=== PATIENT | male | born 1950 | race Caucasian/White ===

== ENCOUNTER 2017-01-27 18:54 | Emergency (ER) | payer OTHER ==
--- NOTE | ~2017-01-27 | CT2 ---
[facility] A Service of [facility] & [facility] RADIOLOGY TEXT RESULTS PATIENT: ABDI JOHNSON LOCATION: [facility] : [birth year] UNIT #: [id number] AGE: [address]: Aman Pryor MD SEX: M ORDER DR: [id number] [facility] [address] [place], [place] [address] [id number] E MR#: [id number] #: [id number] NAME: ABDI JOHNSON : 1950 SEX: M STUDY DATE/TIME: 01/27/2017 19:58 UNIT: [facility] ROOM: STUDY DESCRIPTION: CT Abd and Pelv W Cont Attending Physician: Aman Pryor M.D. Ordering Physician: Aman Pryor M.D. Primary Care Physician: Xenia Beck M.D. MEDICAL IMAGING REPORT This report is preliminary unless electronic signature is present EXAM CT abdomen and pelvis with IV contrast HISTORY Right groin pain today. FINDINGS CT abdomen and pelvis was performed with IV contrast. This CT exam was performed with one or more of the following radiation dose reduction techniques: Automatic exposure control, adjustment of mA and/or kV according to patient size, and iterative reconstruction. CT ABDOMEN: The lung bases are clear. Multiple bilateral renal cysts, predominantly simple cysts, with probable additional hemorrhagic or proteinaceous cysts, very similar to CT 02/26/2014. 1.8 cm hyperenhancing lesion in the posterior right hepatic lobe in segments , stable compared to CT 10/09/2009, indicating a hemangioma. The spleen, pancreas, and adrenal glands are normal. Gallbladder is normal. No bowel dilatation. No ascites. Aortobiiliac stent graft. CT PELVIS: Segmental wall thickening of the distal descending colon extending to the proximal sigmoid colon in the left pelvis over a length of close to 15 cm, with mild adjacent pericolonic stranding, suggesting segmental infectious or inflammatory colitis. No free fluid in the pelvis. No adenopathy. Urinary bladder is normal. IMPRESSION 1. Moderate circumferential wall thickening of the distal descending colon extending to the proximal sigmoid colon in the left pelvis over a length of close to 15 cm, with adjacent pericolonic stranding suggesting segmental infectious or inflammatory colitis. No adjacent fluid collection or abscess. No bowel obstruction. 2. No free fluid in the abdomen or pelvis. [facility]. [facility] A Service of [facility] & [facility] RADIOLOGY TEXT RESULTS PATIENT: ABDI JOHNSON LOCATION: [facility] : 50 UNIT #: [id number] AGE: [address]: Aman Pryor MD SEX: M ORDER DR: 3. Incidental hemangioma in the posterior right hepatic lobe measures 1.8 cm. Dictated by... Sonu Kumar M.D. THIS IS AN ELECTRONICALLY VERIFIED REPORT Sonu Kumar M.D. at 01/28/2017 12:05 AM DFL/pamela TD: 01/27/2017 23:21 JOB #: [id number] MEDICAL IMAGING REPORT Page 1 of 1 COPY
[~2017-01-27 18:54] MED LIST: ACETAMINOPHEN PR; ALBUTEROL17 GM INH; ALDACTONE25 MG PO; AMIODARONE HCL100 MG PO; ASPIRIN EC81 M1 PO; ASPIRIN PO; ASPIRIN81 M2 PO; ASPIRIN81 MG PO; CALCIUM CITRATE1 T15 PO; CLOPIDOGREL75 MG PO; COREG PO; COREG6.25 MG PO; DELTASONE20 MG PO; DITROPAN5 MG PO; FLOMAX0.4 MG PO; IBUPROFEN PO; IBUPROFEN800 MG PO; KEPPRA1000 MG PO; KETOPROFEN PO; LANOXIN125 MCG PO; LASIX20 MG PO; LEVAQUIN750 M1 PO; LIPITOR PO; LIPITOR40 MG PO; LISINOPRIL PO; LOPRESSOR PO; METOPROLOL TAR25 MG PO; NEURONTIN PO; NEURONTIN300 MG PO; PRADAXA150 MG PO; PREDNISONE PO; PRINIVIL5 MG; PRINIVIL5 MG PO; PROAIR HFA8.5 GM IH; RISPERIDONE0.5 MG PO; SYMBICORT INH; TYLOX 5/500 CAP1 CAP PO; VICODIN 5/1 TAB 5/50 PO; VICODIN 5/500 T1 TAB PO; ZITHROMAX PO; ZOCOR20 MG PO; ZOFRAN PO; ZONEGRAN100 M1 PO
[2017-01-27 19:21] LABS: URINE SOURCE CLEAN CATCH
[2017-01-27 19:27] LABS: BASOPHIL# 0.1 X10e3 (0-0.3); BASOPHIL% 1.1 % (0-2.5); EOSINOPHIL# 0.7 X10e3 (0-0.7); EOSINOPHIL% 7.7 % (0.0-7.0); HEMATOCRIT 43.4 % (38.0-50.0); HEMOGLOBIN 14.5 gm/dL (13.0-16.0); LYMPHOCYTE# 2.6 X10e3 (1.0-3.5); LYMPHOCYTE% 29.4 % (17.0-45.0); MEAN CELL VOLUME 92.2 FL (83-96); MEAN CORPUSCULAR HEMOGLOBIN 30.7 PG (28-34); MEAN CORPUSCULAR HGB CONC 33.3 g/dL (30-36); MEAN PLATELET VOLUME 8.4 FL (6.5-11.5); MONOCYTE# 0.6 X10e3 (0-1.0); MONOCYTE% 6.5 % (3.0-12.0); NEUTROPHIL# 4.8 X10e3 (1.5-7.1); NEUTROPHIL% 55.3 % (40-75); PLATELET COUNT 229 X10e3 (140-420); RED BLOOD COUNT 4.71 X10e (3.90-5.60); RED CELL DISTRIBUTION WIDTH 12.9 % (11.0-15.5); WHITE BLOOD COUNT 8.7 X10e3 (4.0-10.5)
[2017-01-27 19:28] LABS: DIFF IND NO
[2017-01-27 19:29] LABS: URINE APPEARANCE CLEAR; URINE BILIRUBIN NEG (NEG); URINE BLOOD NEG (NEG); URINE COLOR YELLOW; URINE GLUCOSE NEG (NEG); URINE KETONE NEG (NEG); URINE LEUKOCYTE ESTERASE TRACE (NEG); URINE NITRATE NEG (NEG); URINE PROTEIN NEG (NEG); URINE SPECIFIC GRAVITY 1.008 (1.003-1.035); URINE UROBILINOGEN 0.2 MG/DL (NEG)
[2017-01-27 19:32] LABS: URBCS1 AUWI 0-2 /[HPF] (0-2); URINE BACTERIA AUWI NEG (NEGATIVE); URINE SQUAMOUS EPITHELIAL CELL NONE SEEN /[HPF]; UWBCS1 AUWI 0-2 (0-5)
[2017-01-27 19:36] LABS: CULTURE INDICATED? NO
[2017-01-27 19:50] LABS: ALBUMIN SERUM 4.2 g/dL (3.5-5.0); BILIRUBIN, DIRECT 0.1 mg/dL (0.0-0.2); BILIRUBIN,INDIRECT 0.7 mg/dL (0.0-0.9); BILIRUBIN,TOTAL 0.8 mg/dL (0.2-2.0); BUN/CREATININE RATIO 12.3; CREATININE SERUM 1.3 mg/dL (0.6-1.4); GLOM FILT RATE Estimated 56.9 mL/min (>60); PROTEIN TOTAL SERUM 7.3 g/dL (6.0-8.3)
== END 2017-01-27 21:15 | disposition home or self-care (01) ==
LOC: CED 18:54
PROVIDERS: Emergency Medicine
DX: S39.011A Strain of muscle, fascia and tendon of abdomen, initial encounter (principal); K52.9 Noninfective gastroenteritis and colitis, unspecified; X58.XXXA Exposure to other specified factors, initial encounter
CPT/HCPCS: 36415; 74177; 80048; 80076; 81003; 85025; 94640; 96372; 99284; J1885; Q9967

== ENCOUNTER 2017-03-22 14:43 | Inpatient (IN) | payer OTHER ==
--- NOTE | ~2017-03-22 | EKG ---
PATIENT: ABDI JOHNSON UNIT #: [id number] Ventricular Rate: 97 BPM Atrial Rate: 97 BPM P-R Interval: 160 ms QRS Duration: 76 ms Q-T Interval: 364 ms QTC Calculation(Bezet): 462 ms P Pomeroy: 77 degrees Calculated R Pomeroy: 104 degrees Calculated T Pomeroy: 74 degrees Diagnosis Line: Sinus rhythm with marked sinus arrhythmia Diagnosis Line: Biatrial enlargement Diagnosis Line: Rightward axis Diagnosis Line: Abnormal ECG Diagnosis Line: When compared with ECG of 26-AUG-2016 10:37, Diagnosis Line: No significant change was found Diagnosis Line: Confirmed by QASIM EUBANKS MD ([id number]) on Diagnosis Line: 03/24/2017 1:13:06 PM INTERPRETING MD: HO
--- NOTE | ~2017-03-22 | CO ---
Unit #: [id number] #: [id number] Patient: ABDI JOHNSON [id number] [address] [place], [place] [address] [id number] I MR#: [id number] NAME: ABDI JOHNSON ROOM: 313 Age: 66 Sex: M Admission Date: 03/22/2017 : 1950 Attending Physician: Francia Porter M.D. Primary Care Physician: Xenia Beck M.D. Consultation Date: 03/23/2017 CONSULTATION REPORT REASON FOR CONSULTATION COPD, possible respiratory failure. HISTORY OF PRESENT ILLNESS This 66-year-old gentleman who has a history of COPD, left ventricular dysfunction, was seen in the hospital in July 2016. He was scheduled for office follow up but missed that appointment as he was in the emergency room for a rash and never rescheduled. He was fairly well controlled on Symbicort but then two or three days ago, had increasing wheezing, shortness of breath, clear sputum production. Presented to the emergency room where he was admitted. Despite IV steroids, he still had significant wheezing. He denied any fever, chest pain, or hemoptysis. PAST MEDICAL HISTORY Remarkable for: 1. COPD. 2. Paroxysmal atrial fibrillation. 3. Hypertension. 4. Hyperlipidemia. 5. Left ventricular dysfunction with an EF of 45%. 6. Pulmonary hypertension. 7. Peripheral vascular disease, status post abdominal aortic aneurysm repair. HOME MEDICATIONS 1. Symbicort two puffs b.i.d. He states compliance. He has no rescue inhaler. 2. Amiodarone. 3. Metoprolol. 4. Lipitor. 5. Aspirin. 6. Pradaxa. ALLERGIES No known medical allergies. SOCIAL HISTORY Quit smoking as of July 2016. FAMILY HISTORY No definite familial lung disease. REVIEW OF SYSTEMS As above. No fever, chills, weight loss. No hemoptysis, chest pain, Unit #: [id number] #: [id number] Patient: ABDI JOHNSON palpitations, abdominal pain, melena, hematochezia, hematuria, dysuria, focal weakness, paresthesias. The rash that he had has resolved and apparently was related to changing detergents. He does complain of intermittent right lower quadrant abdominal discomfort. He has had hernia surgery in the remote past. No definite abdominal pain currently. He has no difficulty with his bowel movements. PHYSICAL EXAMINATION VITAL SIGNS: Afebrile. Pulse 77, respiratory rate 18, blood pressure 127/65. 5 feet 7 inches, 180 pounds. GENERAL: He is in n no acute distress. HEENT: Pupils are equal, round, and reactive to light. Sclerae anicteric. Head atraumatic. NECK: Supple. No supraclavicular or cervical adenopathy appreciated. Mallampati class IV oropharynx. He has natural teeth in moderate to poor dentition. LUNGS: Tight expiratory wheeze, both inspiratory and expiratory. No crackles or consolidation. HEART: Regular rate and rhythm. No pathologic murmur, rub or gallop. ABDOMEN: Soft and, for the most part, nontender. Near his inguinal area there is some mild tenderness to palpation but I do not see an obvious hernia. LOWER EXTREMITIES: No clubbing, cyanosis or edema. No calf tenderness. NEUROLOGIC: Grossly intact. No focal muscle or sensory deficits. SKIN: Warm and dry without rash or diaphoresis. DIAGNOSTIC STUDIES LABORATORY: BUN 20, creatinine 1.0. BNP 61. Cardiac enzymes negative. White blood cell count 11.4, hemoglobin 14.6, platelet count 240. Urinalysis glucosuria. Sputum in the past haemophilus influenzae, betalactamase positive. Urine culture pending. IMAGING: Chest x-ray COPD. CARDIOVASCULAR: Rhythm strips are sinus. EKG P. pulmonale. IMPRESSION 1. Acute exacerbation of chronic obstructive pulmonary disease. 2. Possible acute hypoxemic respiratory failure. I do not see any documented low saturations but he is on 2 liters and he was on 2 liters in the ER. No oxygen at home. 3. Bronchitis. 4. Left ventricular dysfunction. 5. Pulmonary hypertension with estimated RSVP about 47. 6. Paroxysmal atrial fibrillation. 7. Medical problems listed above. PLAN 1. Agree with admission to the hospital. 2. IV steroids, nebulized bronchodilators, oral antibiotics. 3. We will check oxygenation needs. 4. I have suggested office followup at discharge. 5. Prescription for rescue inhaler has been left on the chart. Thank you very much for allowing me to participate in the care of Mr. Johnson. Unit #: [id number] #: [id number] Patient: ABDI JOHNSON Dictated by... Lamont Emery/melody TD: 03/23/2017 15:46 JOB #: [id number] CONSULTATION REPORT Page 1 of 1 X Juan Jose Gerard MD CONSULTATION REPORT
--- NOTE | ~2017-03-22 | CR72 ---
[facility] A Service of [facility] RADIOLOGY TEXT RESULTS PATIENT: ABDI JOHNSON LOCATION: [facility] 313-01 : 50 UNIT #: [id number] AGE: [address]: Donna Andre MD SEX: M ORDER DR: [id number] [facility] [address] [place], [place] [address] [id number] I MR#: [id number] Acc #: [id number] NAME: ABDI JOHNSON : 1950 SEX: M STUDY DATE/TIME: 03/22/2017 14:57 UNIT: [address] ROOM: [facility] STUDY DESCRIPTION: CR Chest Single View Portable Attending Physician: Donna Andre M.D. Ordering Physician: Sukumar Mendieta M.D. Primary Care Physician: Xenia Beck M.D. MEDICAL IMAGING REPORT This report is preliminary unless electronic signature is present EXAM Portable chest x-ray, 03/22/2017 HISTORY Shortness of air. Previous smoker. Short of air, chest pain began today. FINDINGS AP radiograph of the chest is presented. Comparison 11/03/2016. Heart and mediastinum normal in size and contour. Lungs appear slightly hyperinflated as on prior study which may be a reflection of underlying COPD in this patient with prior history of smoking. There is no evidence of acute pulmonary disease, pleural effusion or pneumothorax. No suspicious nodule. The bony structures show no acute abnormality. Dictated by... Sukhwinder Howard M.D. THIS IS AN ELECTRONICALLY VERIFIED REPORT Sukhwinder Howard M.D. at 03/22/2017 10:50 PM CHRISTINE/sonali TD: 03/22/2017 21:45 JOB #: [id number] MEDICAL IMAGING REPORT Page 1 of 1 COPY
--- NOTE | ~2017-03-22 | HP ---
Unit #: [id number] #: [id number] Patient: ABDI JOHNSON [id number] [place], [place] [address] [id number] I MR#: [id number] NAME: ABDI JOHNSON ROOM: 15795 Age: 66 Sex: M Admission Date: 03/22/2017 : 1950 Attending Physician: Donna Andre M.D. Primary Care Physician: Xenia Beck M.D. HISTORY AND PHYSICAL CHIEF COMPLAINT Short of breath. HISTORY OF PRESENT ILLNESS The patient is a 66-year-old male with past medical history of COPD, atrial fibrillation, chronic anticoagulation, hypertension, hyperlipidemia, CHF, pulmonary hypertension, abdominal aortic aneurysm who presented to the emergency department for evaluation of the above. The patient states that he has had a two to three day history of increasing shortness of breath and productive cough. He denies any fever. He has had chest discomfort in association with cough. He denies any vomiting or diarrhea. No urinary symptoms. He has gained weight over the past six months. He denies any lower extremity swelling. In the emergency department the patient's oxygen saturation was 95% on 2 L. Chest x-ray showed nothing acute. Initial EKG showed sinus rhythm with marked sinus arrhythmia. Troponin is less than 0.05. He was given 125 mg of Solu-Medrol. He is being admitted to [facility] for evaluation and further treatment. Actually the Solu-Medrol was given prior to arrival. PAST MEDICAL HISTORY 1. Admission to [facility] August 23-2015 for sepsis secondary to left lower lobe community-acquired pneumonia with Haemophilus influenzae, beta lactamase positive. He also underwent cardiac catheterization during that admission that showed an ejection fraction of 45% with angiographically normal coronary arteries. 2. Atrial fibrillation, on chronic anticoagulation with Pradaxa. The patient has seen Dr. Matute in the past. 3. Hypertension. 4. Hyperlipidemia. 5. Congestive heart failure with an ejection fraction of 45% noted on cardiac catheterization August 26, 2016. 6. Mild pulmonary hypertension. The patient had an echocardiogram August 25, 2016 that showed mild concentric left ventricular hypertrophy, mildly dilated right ventricle, mild aortic stenosis, mild mitral regurgitation, mild tricuspid regurgitation, right ventricular systolic pressure elevated at 47 mmHg. Ejection fraction is noted to be 55% on the echocardiogram. 7. Abdominal aortic aneurysm, status post repair. PAST SURGICAL HISTORY Unit #: [id number] #: [id number] Patient: ABDI JOHNSON 1. Bilateral inguinal hernia repair. 2. Abdominal aortic aneurysm repair. 3. Back surgery. SOCIAL HISTORY The patient quit smoking in July of 2016. He denies alcohol use. He walks without assistance. He lives with his daughter. FAMILY HISTORY Family history is notable for his mother dying of a myocardial infarction at the age of 52. His dad at 67 of ALS. ALLERGIES No known allergies. HOME MEDICATIONS Include amiodarone, atorvastatin, metoprolol, Pradaxa. Home medications will need to be reviewed and verified. REVIEW OF SYSTEMS A complete review of systems is negative except as indicated in the HPI. DIAGNOSTIC STUDIES CARDIOVASCULAR: EKG shows sinus rhythm with marked sinus arrhythmia and a rate of 97 beats per minute. IMAGING: Chest x-ray shows no acute abnormality. LABORATORY: Complete blood count is completely normal. Basic metabolic panel notable for a chloride of 98, CO2 is 34, glucose 120, BUN and creatinine 16 and 1.3 respectively, BNP is 61, troponin is less than 0.05. PHYSICAL EXAMINATION VITAL SIGNS: Temperature is 98.4. Pulse 94. Respirations 16. Blood pressure 171/96. Oxygen saturation is 95% on 2 L. GENERAL: The patient is a male who is awake and alert, in no acute distress. HEENT: The head is atraumatic. Mucous membranes are moist. NECK: Neck is supple. Trachea is midline. CARDIOVASCULAR: Regular rate and rhythm. LUNGS: Demonstrate scattered inspiratory and expiratory wheezes. Breathing is not labored with conversation. ABDOMEN: Abdomen is soft, nontender, with bowel sounds present all four quadrants. EXTREMITIES: Nontender, with no pedal edema. NEUROLOGIC: The patient is awake and alert. He follows commands. PSYCH: Mood and affect are normal. The patient is cooperative. SKIN: Skin of examined areas is warm and dry. ASSESSMENT The patient is a 66-year-old male with: 1. Chronic obstructive pulmonary disease exacerbation. The patient received 125 mg of Solu-Medrol prior to arrival. 2. History of atrial fibrillation, on chronic anticoagulation with Pradaxa, followed by Dr. Matute. 3. Hypertension. 4. Hyperlipidemia. 5. Congestive heart failure with an ejection fraction of 45% noted on Unit #: [id number] #: [id number] Patient: ABDI JOHNSON cardiac catheterization August 26, 2016. 6. Pulmonary hypertension with right ventricular systolic pressure as noted above. 7. Abdominal aortic aneurysm, status post repair. 8. Former smoker. PLAN 1. Admit for observation to intermediate level. 2. Healthy heart diet. 3. Supplemental oxygen. 4. DuoNeb q.4 h. 5. Solu-Medrol 80 mg IV q.12 h. 6. Doxycycline 100 mg p.o. b.i.d. for acute bronchitis pending Dr. Gerard's recommendations. 7. Consult Dr. Gerard regarding COPD exacerbation. 8. Serial cardiac enzymes. 9. Check urinalysis. 10. Strict Is and Os. 11. Protonix for GI prophylaxis since the patient will be on Solu-Medrol. 12. SCDs for DVT prophylaxis. 13. Repeat labs in the morning. 14. Additional workup and consultants based on above. Dictated by Donna Andre M.D. THAI/teo TD: 03/22/2017 19:22 JOB #: [id number] HISTORY AND PHYSICAL Page 1 of 1 X Donna Andre MD X HISTORY AND PHYSICAL
--- NOTE | ~2017-03-22 | DS ---
Unit #: [id number] #: [id number] Patient: ABDI JOHNSON [id number] [address] [place], [place] [address] [id number] I MR#: [id number] NAME: ABDI JOHNSON ROOM: 313 Age: 66 Sex: M Admission Date: 03/22/2017 : 1950 Discharge Date: Attending Physician: Francia Porter M.D. Primary Care Physician: Xenia Beck M.D. DISCHARGE SUMMARY DISCHARGE DIAGNOSES 1. Acute hypoxic respiratory failure from chronic obstructive pulmonary disease. 2. Chronic obstructive pulmonary disease with exacerbation. 3. Chronic atrial fibrillation on Pradaxa. 4. Right lower abdominal pain, likely muscle spasm. No recurrent hernia, as per [facility]. 5. Diabetes mellitus type 2, uncontrolled, likely secondary to steroids. 6. Chronic systolic and diastolic heart failure. 7. History of pulmonary hypertension with right ventricular systolic pressure elevated. 8. Abdominal aortic aneurysm, status post repair. 9. Former smoker. 10. Hyperlipidemia. CONSULTATION Dr. Gerard. PROCEDURE None. DIAGNOSTIC STUDIES LABORATORY: Urine cultures negative. Sodium 141, potassium 4.1, creatinine 1, glucose 220. Troponins negative. BNP 61. CARDIOVASCULAR: EKG shows sinus rhythm. ALLERGIES None. DISCHARGE MEDICATIONS 1. Symbicort 160 mcg two puffs inhalation b.i.d. 2. Amiodarone 200 daily. 3. Pradaxa 150 p.o. b.i.d. 4. Lopressor 25 p.o. b.i.d. 5. Lipitor 40 daily. 6. Aspirin 81 daily. 7. Doxycycline 100 mg p.o. b.i.d. 8. Prednisone tapering dose. 9. ProAir two puffs inhalation four times daily p.r.n. shortness of breath. HOSPITALIZATION COURSE A 66 year old admitted because of shortness of breath. Unit #: [id number] #: [id number] Patient: ABDI JOHNSON Acute hypoxic respiratory failure from COPD: Currently resolved. COPD with exacerbation: Started on IV Solu-Medrol, Dulera, and DuoNebs. Currently breathing better. He has occasional wheezing. Continue with prednisone tapering dose, Symbicort, and albuterol. Right lower abdominal pain: Patient is seen by [facility]. Patient had history of hernia. According to [facility], patient did not have a recurrent hernia, likely muscle spasm. The patient received Flexeril during the hospitalization course. No prescription given. Chronic systolic and diastolic heart failure: Stable. Chronic atrial fibrillation on Pradaxa. DISPOSITION Patient will be discharged home. FOLLOWUP Follow with family physician in one week time. Dictated by... Lamont Simmons TD: 03/25/2017 10:50 JOB #: [id number] DISCHARGE SUMMARY Page 1 of 1 X Francia Porter MD X DISCHARGE SUMMARY
--- NOTE | ~2017-03-22 | CO ---
Unit #: [id number] #: [id number] Patient: ABDI JOHNSON [id number] [address] [place], [place] [address] [id number] I MR#: [id number] NAME: ABDI JOHNSON ROOM: 313 Age: 66 Sex: M Admission Date: 03/22/2017 : 1950 Attending Physician: Francia Porter M.D. Primary Care Physician: Xenia Beck M.D. Consultation Date: 03/24/2017 CONSULTATION REPORT HISTORY AND EXAM Mr. Johnson is a 66-year-old gentleman who was admitted to the hospital with an exacerbation of his COPD. He has been coughing a great deal and has wheezing and respiratory distress. He has a productive cough. He had a bilateral inguinal hernia repair in the and since he has been coughing. Over the last 4 days, he has developed right inguinal discomfort and was concerned he might have a recurrent hernia. We were asked to re-evaluate him for recurrent hernia. PAST MEDICAL HISTORY COPD, paroxysmal atrial fibrillation, hypertension, hyperlipidemia, left ventricular dysfunction, pulmonary hypertension, peripheral vascular disease, status post abdominal aortic aneurysm repair. ALLERGIES No allergies to medication. MEDICATIONS Include Symbicort, amiodarone, metoprolol, Lipitor, aspirin, Pradaxa. FAMILY HISTORY Unremarkable. SOCIAL HISTORY Quit smoking in 07/2016, prior to that was a heavy smoker. REVIEW OF SYSTEMS Noncontributory. PHYSICAL EXAMINATION GENERAL: The patient is awake, alert, and oriented. He still has inspiratory and expiratory wheezing and cough throughout the interview. VITAL SIGNS: Temperature is 97.6, pulse 69, respirations 20, blood pressure is 139/67. HEENT: Unremarkable. Irregular rhythm. LUNGS: Inspiratory and expiratory wheezes throughout. ABDOMEN: Soft. : Examination of inguinal region on bilateral digital examination, in the inguinal region, he has some muscle spasm, particularly on the right, but there is no hernia sac or evidence of recurrent hernia. Testis and cord are normal. EXTREMITIES: Trace edema. NEUROLOGIC: Grossly intact. Unit #: [id number] #: [id number] Patient: ABDI JOHNSON DIAGNOSTIC STUDIES LABORATORY RESULTS: Basic metabolic panel was unremarkable except for a serum CO2 of 33, white count 41268 with normal differential, hemoglobin 14.6, platelets 240,000. Urinalysis negative for infection. IMAGING STUDIES: Most recent chest x-ray, no acute disease. ASSESSMENT AND PLAN The patient with right inguinodynia as a result of his coughing and respiratory distress. I could not appreciate a recurrent hernia on digital examination. I reassured the patient there is no hernia. We will allow and use a heating pad and order some Flexeril for the discomfort. Dictated by... Lamont So/anamaria TD: 03/25/2017 02:49 JOB #: [id number] CONSULTATION REPORT Page 1 of 1 X Vito Mayfield MD X CONSULTATION REPORT
[2017-03-22 15:27] LABS: BASOPHIL# 0.1 X10e3 (0-0.3); BASOPHIL% 0.9 % (0-2.5); EOSINOPHIL# 0.6 X10e3 (0-0.7); EOSINOPHIL% 6.1 % (0.0-7.0); HEMATOCRIT 46.8 % (38.0-50.0); HEMOGLOBIN 15.2 gm/dL (13.0-16.0); LYMPHOCYTE# 3.7 X10e3 (1.0-3.5); LYMPHOCYTE% 36.3 % (17.0-45.0); MEAN CELL VOLUME 93.7 FL (83-96); MEAN CORPUSCULAR HEMOGLOBIN 30.3 PG (28-34); MEAN CORPUSCULAR HGB CONC 32.4 g/dL (30-36); MONOCYTE# 0.7 X10e3 (0-1.0); MONOCYTE% 6.7 % (3.0-12.0); NEUTROPHIL# 5.1 X10e3 (1.5-7.1); PLATELET COUNT 244 X10e3 (140-420); RED CELL DISTRIBUTION WIDTH 12.5 % (11.0-15.5); WHITE BLOOD COUNT 10.2 X10e3 (4.0-10.5)
[2017-03-22 15:30] LABS: DIFF IND NO
[2017-03-22 15:51] LABS: BUN/CREATININE RATIO 12.3; CALCIUM SERUM 8.8 mg/dL (8.4-10.2); CREATININE SERUM 1.3 mg/dL (0.6-1.4); GLOM FILT RATE Estimated 56.9 mL/min (>60)
[2017-03-22 17:10] LABS: POC - CKMB 1.5 ng/mL (0.0-7.9); POC - TROPONIN <0.05 ng/mL (<=0.05)
[2017-03-22 17:20] LABS: POC - CKMB 1.3 ng/mL (0.0-7.9); POC - TROPONIN <0.05 ng/mL (<=0.05)
[2017-03-22 20:38] LABS: URINE SOURCE CLEAN CATCH
[2017-03-22 20:44] LABS: URINE APPEARANCE CLEAR; URINE BILIRUBIN NEG (NEG); URINE BLOOD NEG (NEG); URINE COLOR YELLOW; URINE GLUCOSE >1000 MG/DL (NEG); URINE KETONE NEG (NEG); URINE LEUKOCYTE ESTERASE NEG (NEG); URINE NITRATE NEG (NEG); URINE PROTEIN NEG (NEG)
[2017-03-23 03:11] LABS: CK TOTAL 43 IU/L (36-174)
[2017-03-23 05:51] LABS: HEMATOCRIT 45.7 % (38.0-50.0); HEMOGLOBIN 14.6 gm/dL (13.0-16.0); MEAN CELL VOLUME 94.4 FL (83-96); MEAN CORPUSCULAR HEMOGLOBIN 30.2 PG (28-34); MEAN PLATELET VOLUME 9.1 FL (6.5-11.5); RED BLOOD COUNT 4.84 X10e (3.90-5.60); RED CELL DISTRIBUTION WIDTH 12.6 % (11.0-15.5); WHITE BLOOD COUNT 11.4 X10e3 (4.0-10.5)
[2017-03-23 05:58] LABS: CK TOTAL 41 IU/L (36-174)
[2017-03-23 06:17] LABS: ALBUMIN SERUM 3.8 g/dL (3.5-5.0); BILIRUBIN,TOTAL 0.3 mg/dL (0.2-2.0); GLOM FILT RATE Estimated 78.1 mL/min (>60); POTASSIUM 4.1 mmol/L (3.5-5.1); PROTEIN TOTAL SERUM 6.9 g/dL (6.0-8.3)
[2017-03-25] MEDS ORDERED: DOXYCYCLINE HY100 M4 PO (12:55)
[2017-03-25] MEDS ORDERED: PREDNISONE (12:56)
[2017-03-25] MEDS ORDERED: ALBUTEROL17 GM INH (13:01)
== END 2017-03-25 14:01 | disposition home or self-care (01) | DRG 189 ==
LOC: CED 14:43 → C3A PCU 18:15 → CEDOF 18:15 → CED 18:40 → CEDOF 18:40 → C3A PCU 21:15 → CEDOF 21:15 → C3A PCU 21:15
PROVIDERS: Emergency Medicine; Family Medicine
DX: J96.01 Acute respiratory failure with hypoxia (principal); I50.42 Chronic combined systolic (congestive) and diastolic (congestive) heart failure; I27.2 Other secondary pulmonary hypertension; J44.1 Chronic obstructive pulmonary disease with (acute) exacerbation; I48.2 Chronic atrial fibrillation; Z79.02 Long term (current) use of antithrombotics/antiplatelets; E11.65 Type 2 diabetes mellitus with hyperglycemia; I71.4 Abdominal aortic aneurysm, without rupture; Z87.891 Personal history of nicotine dependence; E78.5 Hyperlipidemia, unspecified; R10.31 Right lower quadrant pain; Z79.82 Long term (current) use of aspirin
CPT/HCPCS: 36415; 71010; 80048; 80053; 81003; 82550; 82553; 83880; 84484; 85025; 85027; 87086; 93005; 94640; 94760; 99285; J2930

== ENCOUNTER 2017-06-15 09:53 | Inpatient (IN) | payer OTHER ==
[~2017-06-15] VITALS: Ht 170.2 cm; Wt 84.4 kg
--- NOTE | ~2017-06-15 | CR6 ---
[facility] A Service of [facility] RADIOLOGY TEXT RESULTS PATIENT: ABDI JOHNSON LOCATION: [facility] 318- : [birth year] UNIT #: [id number] AGE: [address]: Triston Cleaning MD SEX: M ORDER DR: [id number] [facility] [address] [place], [place] [address] [id number] I MR#: [id number] Acc #: [id number] NAME: ABDI JOHNSON : 1950 SEX: M STUDY DATE/TIME: 06/18/2017 11:08 UNIT: C3A U ROOM: [facility] STUDY DESCRIPTION: CR Abdomen Portable Sng View Attending Physician: Triston Cleaning M.D. Ordering Physician: Martinez Burrows M.D. Primary Care Physician: Xenia Beck M.D. MEDICAL IMAGING REPORT This report is preliminary unless electronic signature is present EXAM AP view of the abdomen. COMPARISON CT abdomen and pelvis dated June 15, 2017. INDICATIONS 67-year-old male with abdominal distension, nausea, emesis and diarrhea for 1 week. Endoscopy performed yesterday. FINDINGS Aortobiiliac stent graft is again noted, grossly stable. There is gaseous distension of colon and gaseous distension of small bowel loops throughout the abdomen with the largest small bowel loop measuring approximately 4.9 cm in caliber. This appearance is not appreciably changed from 3 days ago, but may be mildly worse. IMPRESSION Abnormal dilatation of small bowel and colon is grossly unchanged from 3 days ago. This could possibly be due to a distal colonic obstruction. Clinical correlation and imaging follow up are recommended to ensure resolution. Dictated by... Skyler Mckeon M.D. THIS IS AN ELECTRONICALLY VERIFIED REPORT Skyler Mckeon M.D. at 06/22/2017 11:44 AM IVELISSE/brody TD: 06/18/2017 17:10 JOB #: [id number] [facility] A Service of [facility] RADIOLOGY TEXT RESULTS PATIENT: ABDI JOHNSON LOCATION: [facility] 318-01 : [birth year] UNIT #: [id number] AGE: [address]: Triston Cleaning MD SEX: M ORDER DR: MEDICAL IMAGING REPORT Page 1 of 1 COPY
--- NOTE | ~2017-06-15 | CO ---
Unit #: [id number] #: [id number] Patient: ABDI JOHNSON [id number] [address] [place], [place] [address] [id number] I MR#: [id number] NAME: ABDI JOHNSON ROOM: 318 Age: 67 Sex: M Admission Date: 06/15/2017 : 1950 Attending Physician: Triston Cleaning M.D. Primary Care Physician: Xenia Beck M.D. Consultation Date: 06/16/2017 CONSULTATION REPORT REASON FOR CONSULTATION COPD. HISTORY OF PRESENT ILLNESS 67-year-old gentleman known to our practice with COPD, presents with a four to five day history of nausea, vomiting, diarrhea. He says that it is somewhat better today. He does have a history of an abnormal CAT scan showing bowel wall thickening. He had a repeat CT scan of the abdomen which stated there was a persistent, moderately extensive, wall thickening of the colon. They favored inflammatory colitis but underlying mass could not be ruled out. Of note, lower lung cuts were unremarkable. The patient has intermittent wheezing, stable shortness of breath, no sputum production, no hemoptysis. He was recently seen in our office in March of this year. Spiriva was added to his Symbicort. PAST MEDICAL HISTORY Remarkable for: 1. COPD. 2. Left ventricular dysfunction, EF approximately 45%. 3. Paroxysmal atrial fibrillation and atrial flutter. 4. Hypertension. 5. Hyperlipidemia. 6. Pulmonary hypertension. 7. Snoring. 8. Refusing evaluation for sleep apnea. 9. Peripheral vascular disease. 10. Status post abdominal aortic aneurysm repair. MEDICATIONS AT HOME 1. Symbicort, two puffs twice a day. 2. Spiriva, two puffs once a day. 3. Formal med rec with other medications is unavailable. ALLERGIES No known medical allergies. SOCIAL HISTORY Quit smoking over a year ago. He only drinks intermittently now although he drank heavier in the past. FAMILY HISTORY No familial lung disease. REVIEW OF SYSTEMS Unit #: [id number] #: [id number] Patient: ABDI JOHNSON Fairly unremarkable. No fever, chills, no anginal chest pain, palpitations. Abdominal review of systems as above. No leg pain, swelling. No focal weakness, paresthesias. He is feeling slowly better. He does snore. PHYSICAL EXAMINATION GENERAL: Examination reveals a patient who is in no acute distress. VITAL SIGNS: He is afebrile. Pulse 84, respiratory rate 18, blood pressure 133/74, 5 foot 7, 176 pounds. HEENT: Pupils equal, round, reactive to light. Sclerae anicteric. Head atraumatic. NECK: Supple. No supraclavicular or cervical adenopathy appreciated. CHEST: Decreased breath sounds. He does have some mild expiratory wheeze. No consolidation. CARDIAC EXAMINATION: Reveals a regular rate and rhythm. No definite murmur, rub or gallop. ABDOMEN: Soft, nontender. No hepatomegaly or rebound. EXTREMITIES: No clubbing, cyanosis or edema. No calf tenderness. SKIN: Warm and dry without rash or diaphoresis. NEUROLOGICAL: Grossly intact with no focal muscle or sensory deficits. DIAGNOSTIC STUDIES IMAGING: CT scan of the abdomen lower lung cuts were unremarkable. BUN 15, creatinine 1.0. Cardiac enzymes negative. CBC normal. His hemoglobin was elevated when he came in but now normal. I suspect that was related to hemoconcentration. IMPRESSION 1. COPD with mild wheezing. 2. Nausea, vomiting, diarrhea, appears improved. 3. Abnormal CAT scan, enteritis versus mass. 4. History of paroxysmal atrial fibrillation, now normal sinus rhythm. 5. Pulmonary hypertension. 6. Snoring, possible sleep apnea, declines evaluation. 7. Left ventricular dysfunction. PLAN Brief pulse of steroids. Continue Symbicort twice a day, Spiriva once a day at home. I will add Dulera while he is here. Continue nebulized DuoNeb. Again, I have discussed with the patient possible sleep apnea and he declines evaluation. Obviously, evaluation of his abnormal abdominal CT scan to primary physician. Thank you very much for allowing me to participate in the care of Mr. Johnson. Dictated by... Juan Jose Gerard M.D. IGNACIO/cassandra TD: 06/16/2017 10:58 JOB #: [id number] Unit #: [id number] #: [id number] Patient: ABDI JOHNSON CONSULTATION REPORT Page 1 of 1 X Juan Jose Gerard MD X CONSULTATION REPORT
--- NOTE | ~2017-06-15 | HP ---
Unit #: [id number] #: [id number] Patient: ABDI JOHNSON [id number] [facility]. [place], [place] [address] [id number] I MR#: [id number] NAME: ABDI JOHNSON ROOM: 318 Age: 67 Sex: M Admission Date: 06/15/2017 : 1950 Attending Physician: Triston Cleaning M.D. Primary Care Physician: Xenia Beck M.D. HISTORY AND PHYSICAL ADMISSION DIAGNOSES 1. A fib with RVR. 2. Nausea, vomiting and diarrhea. 3. Abdominal pain. 4. History of COPD. HISTORY OF PRESENT ILLNESS Mr. Johnson is a 67-year-old gentleman with past medical history of paroxysmal atrial fibrillation, COPD, left ventricular dysfunction, hypertension, dyslipidemia, pulmonary hypertension and peripheral vascular disease who presented to the emergency room with complaints of nausea, vomiting, diarrhea and abdominal pain. His abdominal pain is described as sharp, all over the abdomen. No alleviating or aggravating factors. Rates it about a 6 to 7/10. In the ER he was found in A fib with RVR, was put on IV Cardizem and admitted. The patient denies any chest pain. Complains of shortness of air. Denies any headache, dizziness, syncope, fever, chills. Denies any bloody stools or bloody emesis. REVIEW OF SYSTEMS A 12-point review of systems on this patient is basically negative except as above. PAST MEDICAL HISTORY Significant for history of left ventricular dysfunction, COPD, paroxysmal atrial fibrillation, hypertension, dyslipidemia, pulmonary hypertension and peripheral vascular disease. PAST SURGICAL HISTORY Significant for abdominal aortic aneurysm repair, bilateral inguinal hernia repair and back surgery. SOCIAL HISTORY He is a reformed smoker. Denies any alcohol or illicit drugs. FAMILY HISTORY Family history is significant for coronary artery disease. HOME MEDICATIONS I do not have the home medications in front of me. This will be clarified with the pharmacy, and the patient will be restarted accordingly. ALLERGIES Unit #: [id number] #: [id number] Patient: ABDI JOHNSON No known drug allergies. PHYSICAL EXAMINATION VITAL SIGNS: BP 116/63, heart rate 85, respirations 18, temperature 98.8. HEENT: Head is atraumatic. Pupils are equal, round and reactive to light and accommodation. Extraocular muscles are intact. Oropharynx is clear. NECK: Neck is supple. No masses. No JVD. No bruit. RESPIRATORY: Chest is diminished bilaterally. CARDIOVASCULAR: S1, S2. No murmurs. ABDOMEN: Abdomen is soft, tender all over. No rebound. Bowel sounds are diminished. EXTREMITIES: Lower extremities without any cyanosis, clubbing or edema. NEUROLOGIC: Patient grossly intact. No focal deficits. LABS AND DIAGNOSTICS IMAGING: CT of the abdomen and pelvis was done, which is currently pending. LABORATORY: Chemistry significant for blood glucose of 176, sodium 133, estimated GFR 56.5, direct bili 1.0, lipase 14. Coagulation panel unremarkable. Set of cardiac enzymes negative. Hematology - White count 14.8, H and H 16.7 and 49.9. ASSESSMENT AND PLAN 1. Nausea, vomiting and diarrhea. Supportive care, symptomatic management, IV fluids. Check stool for C. diff. Surgery consult with LSA. 2. Leukocytosis. Started on empiric Zosyn. 3. Paroxysmal atrial fibrillation. Resume home medications. Cardiology following. 4. Acute exacerbation of COPD. Will treat with bronchodilators, IV steroids. 5. History of left ventricular dysfunction. Continue per cardiology. 6. Pulmonary hypertension. 7. History of peripheral vascular disease status post abdominal aortic aneurysm repair. 8. GI and DVT prophylaxis. Continue Protonix, SCDs. Dictated by Lamont Silver/kadeem TD: 06/18/2017 11:07 JOB #: [id number] Unit #: [id number] #: [id number] Patient: ABDI JOHNSON HISTORY AND PHYSICAL Page 1 of 1 X Triston Cleaning MD X HISTORY AND PHYSICAL
--- NOTE | ~2017-06-15 | OR ---
Unit #: [id number] #: [id number] Patient: ABDI JOHNSON [id number] [address] [id number] E MR#: [id number] NAME: ABDI JOHNSON ROOM: Date of Procedure: 06/15/2017 Admission Date: 06/15/2017 Surgeon: Seth Philip M.D. : 1950 Attending Physician: Ilana Lopez M.D. Primary Care Physician: Xenia Beck M.D. PROCEDURE OPERATIVE NOTE PREOPERATIVE DIAGNOSIS Right ureteral stone. POSTOPERATIVE DIAGNOSIS Right ureteral stone. PROCEDURE PERFORMED Right extracorporeal shockwave lithotripsy. SURGEON Seth Philip M.D. ANESTHESIA General. INDICATIONS FOR PROCEDURE The patient is a pleasant 58-year-old gentleman with a right mid ureteral stone which was impacted. It required nephrostomy tube and antegrade stent placement. He returns for definitive treatment of the stone. The risks, benefits, and alternatives including bleeding, infection, damage to adjacent structures, need for further surgery, as well as the risk of anesthesia were explained to the patient. Informed consent was obtained. He wished to proceed. DESCRIPTION OF PROCEDURE The patient was taken to the operating suite and properly identified. After the application of satisfactory general anesthetic, the patient was placed in the supine position. The stone was visualized using biplanar fluoroscopy. We started at the lowest power setting and a rate of 0.6 Hz. We increased to a maximum power setting of 7 and 1.2 Hz. We treated with a total of 3000 shocks. There was fluoroscopic evidence of fragmentation. The patient tolerated the procedure well without complications. PLAN We will see him back in one week with a KUB for possible cysto and sent removal. He does not have a string. Dictated by... Seth Philip M.D. Unit #: [id number] #: [id number] Patient: ABDI JOHNSON LAUREN/df TD: 06/15/2017 11:58 JOB #: [id number] PROCEDURE OPERATIVE NOTE Page 1 of 1 X Seth Philip MD X PROCEDURE OPERATIVE NOTE
--- NOTE | ~2017-06-15 | CO ---
Unit #: [id number] #: [id number] Patient: ABDI JOHNSON [id number] [facility]. [place], [place] [address] [id number] I MR#: [id number] NAME: ABDI JOHNSON ROOM: 318 Age: 67 Sex: M Admission Date: 06/15/2017 : 1950 Attending Physician: Triston Cleaning M.D. Primary Care Physician: Xenia Beck M.D. Consultation Date: 06/15/2017 CONSULTATION REPORT REASON FOR CONSULT Atrial flutter. HISTORY OF PRESENT ILLNESS This is a 67-year-old white male, previously known to our group with a past medical history of atrial fibrillation/atrial flutter with rapid ventricular response in 07/2016. The patient was converted to sinus rhythm with Cardizem. He was also treated at that time for respiratory failure, sepsis and pneumonia. A 2D echocardiogram was completed on 08/25/2016, which revealed an ejection fraction of 55% with mild LVH. The patient was found to have mild aortic stenosis, mitral regurgitation and tricuspid regurgitation. RVSP was elevated at 47 mmHg, suggesting moderate pulmonary hypertension. Cardiac catheterization was completed on 08/26/2016 revealed normal coronaries. Additional past medical history includes COPD, hypertension, hyperlipidemia and history of tobacco and alcohol use. The patient presented to the hospital with complaints of abdominal pain with accompanied diarrhea. There are no reports of fever or chills. He has had some shortness of breath, but not worse than normal. He denies chest pain or palpitations. He is fairly active and is able to clean around the house and fix his meals, however, he cannot walk long distance. He has been referred for pulmonary rehab, but has not started yet. In the emergency department, his temperature was 98, pulse 120, respirations 16, blood pressure 135/88 and O2 saturation 98% on room air. Initial x-ray of the abdomen revealed significant gas pattern. The patient was found to have atrial fibrillation with rates in the 130s to 140 with atrial flutter. He was started on normal saline and Zofran. He was given 20 mg IV Cardizem and started on a Cardizem drip at 10 mg/hour. Cardiology was consulted for atrial flutter. The patient denies any cardiac symptoms currently, but is complaining of abdominal pain. In addition to diarrhea, he has also had some nausea and vomiting. PAST MEDICAL HISTORY 1. Previous admission to [facility] in 07/2016 for sepsis respiratory failure, and pneumonia. Found to have atrial fibrillation/atrial flutter with RVR, converted to sinus rhythm with Cardizem. 2. Cardiac catheterization, 08/26/2016, revealed normal coronaries. 3. 2D echocardiogram 08/25/2016 revealed an ejection fraction of 55%. Technically difficult study. Mild LVH. Mild aortic stenosis. Mild mitral regurgitation. Mild tricuspid regurgitation. RVSP 47 mmHg, consistent with moderate pulmonary hypertension, small pericardial Unit #: [id number] #: [id number] Patient: ABDI JOHNSON effusion versus fat pad. 4. Previous 2D echocardiogram from 01/08/2015 revealed an ejection fraction of 40% to 45% with moderate septal hypokinesis. Mild mitral and tricuspid regurgitation. Aortic valve sclerosis. 5. Previous cardiac catheterization in 2008 with mild disease documented. 6. COPD. 7. Hypertension. 8. Hyperlipidemia. 9. Reformed alcohol and reformed tobacco. 10. PAD with history of abdominal aortic aneurysm, status post endovascular repair in 2008. PAST SURGICAL HISTORY 1. Cardiac catheterization as noted above. 2. Abdominal aortic endovascular repair in 2008. 3. Bilateral inguinal hernia repair. 4. Back surgery. HOME MEDICATIONS Symbicort 160 mcg/4.5 mcg 2 puffs inhalation b.i.d. ALLERGIES No known drug allergies. SOCIAL HISTORY The patient lives in a private residence. He is a reformed smoker. He has a history of alcohol use, but none currently. He quit smoking reportedly in 2014. FAMILY HISTORY Noncontributory for heart disease. REVIEW OF SYSTEMS Ten-point review of systems negative except for details noted above in HPI. PHYSICAL EXAMINATION VITAL SIGNS: Temperature 98, pulse 120, blood pressure 135/88. CONSTITUTIONAL: This is a 67-year-old white male, in no acute distress. SKIN: Warm and dry. NECK: Supple. No jugular vein distention. No hepatojugular reflux. Normal carotid upstrokes. No carotid bruits auscultated. HEART: S1 and S2. Irregularly irregular. Slightly tachycardic. No murmurs, rubs, or gallops. LUNGS: Bilateral breath sounds have good air entry throughout all lung rosales. Respirations are even and nonlabored. No rales, rhonchi, or wheezes. ABDOMEN: Slightly distended. Generalized tenderness. Hyperactive bowel sounds. EXTREMITIES: Bilateral lower extremities have no pretibial pr pitting edema. DP and PT pulses are 2+. Capillary refill is less than 2 seconds. DIAGNOSTIC STUDIES LABORATORY RESULTS: Blood cell count 14.8, hemoglobin 16.7, hematocrit 49.9, platelets 359. Sodium 133, potassium 3.8, chloride 92, CO2 of 28, BUN 16, creatinine 1.3, glucose 176. AST 17, ALT 15, alkaline phos 79. Direct bilirubin 0.4, indirect bilirubin 1.0, total bilirubin 1.4. Total protein 7.8, albumin 3.9, lipase 14, INR 1.1. Unit #: [id number] #: [id number] Patient: ABDI JOHNSON IMAGING STUDIES: Initial x-ray of the abdomen reveals significant gas pattern. Final report pending. CT of the abdomen and pelvis pending. Cardiovascular; EKG reveals atrial flutter with a ventricular rate of 162 beats per minute. Rightward axis deviation. Nonspecific ST-T wave changes. QTc 439 milliseconds. IMPRESSION 1. Atrial flutter with 2:1 conduction, now normal sinus rhythm. 2. Abdominal pain with nausea and vomiting. 3. Right upper quadrant tenderness, rule out ileus. 4. Chronic obstructive pulmonary disease. 5. Peripheral arterial disease with history of endovascular aortic aneurysm repair. 6. Hypertension. 7. Hyperlipidemia. 8. Normal coronaries per cardiac catheterization in 07/2016. 9. Ejection fraction of 55% with mild aortic stenosis, mitral regurgitation, tricuspid regurgitation per 2D echocardiogram in 07/2016. 10. Reformed tobacco abuse. 11. Reformed alcohol. PLAN 1. The patient presented to the hospital with complaints of abdominal pain with nausea, vomiting, and diarrhea. He was admitted for further observation and start on IV fluids. 2. CT of abdomen and pelvis has been ordered and is pending. 3. The patient will be continued on IV Cardizem to help maintain sinus rhythm while he is n.p.o. 4. We will hold anticoagulation for the time being. 5. TSH level will be obtained. 6. There are no complaints of chest pain or evidence of CHF on exam. 7. The patient has a CHADS2-VASc score of 3. 8. . Dictated by... PA Lee TD: 06/21/2017 03:56 JOB #: [id number] CONSULTATION REPORT Page 1 of 1 X X CONSULTATION REPORT
--- NOTE | ~2017-06-15 | EKG ---
PATIENT: ABDI JOHNSON UNIT #: [id number] Ventricular Rate: 82 BPM Atrial Rate: 82 BPM P-R Interval: 148 ms QRS Duration: 80 ms Q-T Interval: 430 ms QTC Calculation(Bezet): 502 ms P [place]: 86 degrees Calculated R [place]: 87 degrees Calculated T [place]: 115 degrees Diagnosis Line: Sinus rhythm with Premature atrial complexes Diagnosis Line: Right atrial enlargement Diagnosis Line: Nonspecific T wave abnormality Diagnosis Line: Prolonged QT Diagnosis Line: Abnormal ECG Diagnosis Line: When compared with ECG of 15-JUN-2017 13:22, Diagnosis Line: Nonspecific T wave abnormality now evident in Diagnosis Line: Inferior leads Diagnosis Line: Nonspecific T wave abnormality now evident in Diagnosis Line: Anterolateral leads Diagnosis Line: QT has lengthened Diagnosis Line: Confirmed by HENRI ROMAN MD ([id number]) on 06/16/2017 Diagnosis Line: 6:53:39 PM INTERPRETING MD: ABEL BERNARD
--- NOTE | ~2017-06-15 | CT4 ---
[facility] A Service of [facility] & [facility] RADIOLOGY TEXT RESULTS PATIENT: ABDI JOHNSON LOCATION: [facility] 318-01 : [birth year] UNIT #: [id number] AGE: [address]: Triston Cleaning MD SEX: M ORDER DR: [id number] [facility] [address] [place], [place] [address] [id number] I MR#: [id number] Acc #: [id number] NAME: ABDI JOHNSON : 1950 SEX: M STUDY DATE/TIME: 06/15/2017 20:09 UNIT: [id number] ROOM: 318 STUDY DESCRIPTION: CT Abd and Pelv Wo Cont Attending Physician: Triston Cleaning M.D. Ordering Physician: Sonido Matute M.D. Primary Care Physician: Xenia Beck M.D. MEDICAL IMAGING REPORT This report is preliminary unless electronic signature is present EXAM CT abdomen pelvis with oral contrast HISTORY Nausea, vomiting and diarrhea and right abdomen pain for [address] exam was performed with one or more of the following radiation dose reduction techniques: automatic exposure control, adjustment of mA and/or kV according to patient size, and iterative reconstruction. FINDINGS CT abdomen and pelvis was performed with oral contrast and without IV contrast. The exam is compared to CT 01/27/2017. CT ABDOMEN: The liver is unremarkable, without contrast. The prior study demonstrated a chronic hyperenhancing lesion in the inferior right hepatic lobe, considered benign given its lack of interval change compared to 10/09/2009 CT. No biliary dilatation. Gallbladder, spleen, and adrenal glands are normal. Moderate generalized bilateral renal parenchymal atrophy. Multiple bilateral renal masses, the majority of which are low density and several of which are intermediate increased density, likely a combination of simple cysts and hemorrhagic or proteinaceous cysts. These measure up to approximately 4 cm in the right kidney and 3 cm in the left kidney. Aortobifemoral endovascular graft. Mild dilatation of small bowel in the left abdomen and mid abdomen. No definite transition point is identified. CT PELVIS: Moderate to moderately severe circumferential wall thickening of the colon extending from the junction of the descending and proximal sigmoid colon to the midsigmoid, over a length of nearly 15 cm, with adjacent pericolonic stranding, similar to findings on prior CT 01/27/2017. Consider infectious or inflammatory colitis. Colonic mass is STS. [facility] A Service of [facility] RADIOLOGY TEXT RESULTS PATIENT: ABDI JOHNSON LOCATION: A 318-01 : [birth year] UNIT #: [id number] AGE: [address]: Triston Cleaning MD SEX: M ORDER DR: considered less likely given the length of involvement. However, correlation with the patient's symptoms is recommended and consider sigmoidoscopy for further evaluation given it chronicity. New focal soft tissue thickening or inflammatory stranding extending from the left posterior pelvis to the central pelvis, could be inflammatory or postinflammatory. Moderate bladder wall thickening, could be secondary to hypertrophy or cystitis. The bladder is decompressed. Small amount of free fluid the pelvis. Normal appendix. IMPRESSION 1. Persistent moderately extensive circumferential wall thickening of the colon extending from the junction of the descending and sigmoid colon in the left upper pelvis to the midsigmoid colon over a length of nearly 15 cm with fairly extensive adjacent pericolonic stranding. Findings favor segmental infectious or inflammatory colitis. Underlying colonic mass is not excluded but is considered less likely given the length of involvement. Given the lack of interval resolution, consider sigmoidoscopy for further evaluation depending on the patient's history and symptoms. 2. New more focal ill-defined inflammatory stranding or postinflammatory change in the pelvis extending from the left posterior pelvis to the central pelvis. No drainable fluid collection. 3. Mild dilatation of proximal small bowel could be secondary mild ileus. 4. Normal appendix. 5. Multiple bilateral renal cysts, likely a combination of simple cysts and hemorrhagic or proteinaceous cysts. These are unchanged. Dictated by... Sonu Kumar M.D. THIS IS AN ELECTRONICALLY VERIFIED REPORT Sonu Kumar M.D. at 06/16/2017 11:25 PM TWILA/sonali TD: 06/16/2017 02:29 JOB #: [id number] MEDICAL IMAGING REPORT Page 1 of 1 COPY
--- NOTE | ~2017-06-15 | DS ---
Unit #: [id number] #: [id number] Patient: ABDELRAHMAN JOHNSON [id number] [address] [place], [place] [address] [id number] I MR#: [id number] NAME: ABDELRAHMAN JOHNSON ROOM: 318 Age: 67 Sex: M Admission Date: 06/15/2017 : 1950 Discharge Date: 06/21/2017 Attending Physician: Triston Cleaning M.D. Primary Care Physician: Xenia Beck M.D. DISCHARGE SUMMARY CONSULTATION DURING HOSPITALIZATION 1. Dr. Benjamin from [facility]. 2. Dr. Gerard from [facility]. 3. Dr. Chi from [facility]. LAB WORKUP ON DISCHARGE CMP shows sodium 136, potassium 4.6, chloride 97, BUN 16, creatinine 0.8. Liver enzymes are stable. CBC shows WBC 12.2, hemoglobin 12.7, hematocrit 38.2 and platelet count of 275. Troponin less than 0.03. PROCEDURE PERFORMED DURING HOSPITALIZATION Lap cholecystectomy which was done on 06/20/17 for cholecystitis. TSH 0.54. CT scan of the abdomen and pelvis was done on admission which showed thickening of the colon extending from the junction of descending and sigmoid colon, possible colitis. HIDA scan was done and that showed gallbladder not visualized within two hours of imaging suggesting the presence of acute or chronic cholecystitis. HOSPITAL COURSE Mr. Abdelrahman Johnson is a 67-year-old male who was admitted by my colleague, Dr. Cleaning, with a complaint of nausea, vomiting, diarrhea and abdominal pain. Patient was admitted to telemetry unit. LSA was consulted. Patient was started on IV Zosyn and Flagyl for possible colitis. Patient was found to have cholecystitis and had lap valentina done. The patient also had atrial fibrillation and, because of his NPO status, Cardizem drip was started and anticoagulation was held because of the surgical procedure. He is doing much better at this time, is being discharged home on the following medications which are: 1. Ventolin inhaler on a p.r.n. basis. 2. Flagyl 250 q.8 for two days. 3. Protonix 40 mg daily. 4. Carafate 1 g three times a day. 5. Lipitor 40 mg daily. 6. Metoprolol 25 mg b.i.d. 7. Pradaxa 150 mg b.i.d. Unit #: [id number] #: [id number] Patient: ABDELRAHMAN JOHNSON 8. Amiodarone 200 mg daily. 9. Symbicort 160/4.5, two puffs inhaler b.i.d. 10. Tylenol on a p.r.n. basis. 11. [place] 7.5 q.4 p.r.n., dispense 30, prescription written by Dr. Fonseca. EXAMINATION ON DISCHARGE Blood pressure 128/81, respiratory rate 18, pulse is 57, temperature 98.7, oxygen saturation is 97%. CHEST has fair air entry. CVS - S1, S2 positive. Regular rhythm. ABDOMEN is soft. EXTREMITY edema. DISCHARGE INSTRUCTION 1. Please note, patient will be discharged on prednisone tapering dose also. 2. Follow up with primary care provider in one week. 3. CBC/BMP to be done in one week. 4. Followup with [facility], Dr. Fonseca, in two weeks. 5. [place] prescription written by Dr. Fonseca. Dictated by... Nori Sawant M.D. Margarette TD: 06/22/2017 11:24 JOB #: [id number] DISCHARGE SUMMARY Page 1 of 1 X Nori Sawant MD X DISCHARGE SUMMARY
--- NOTE | ~2017-06-15 | NM21 ---
[facility] A Service of [facility] RADIOLOGY TEXT RESULTS PATIENT: ABDI JOHNSON LOCATION: [facility] : 50 UNIT #: [id number] AGE: [address]: Triston Cleaning MD SEX: M ORDER DR: [id number] [facility] [address] [facility]. [place], [place] [address] [id number] MR#: [id number] Acc #: [id number] NAME: ABDI JOHNSON : 1950 SEX: M STUDY DATE/TIME: 06/18/2017 14:37 UNIT: [address] ROOM: [facility] STUDY DESCRIPTION: NM Hepatobiliary W GB Attending Physician: Triston Cleaning M.D. Ordering Physician: Sukhwinder Fonseca M.D. Primary Care Physician: Xenia Beck M.D. MEDICAL IMAGING REPORT This report is preliminary unless electronic signature is present EXAM HIDA scan. DATE 06/18/2017 HISTORY Abdominal pain since 06/07/2017 with nausea, reflux and diarrhea. COMPARISON CT abdomen and pelvis 06/15/2017 FINDINGS Following intravenous administration of 5.7 mCi technetium 99m Choletec, anterior planar imaging was obtained of the abdomen for 2 hours. Normal radiopharmaceutical uptake is demonstrated within the liver. There is clearance of the radiopharmaceutical into the small bowel over the course of the examination indicating patency of the common bile duct. However, the gallbladder is not visualized within 2 hours, which would suggest the presence of either acute or chronic cholecystitis. IMPRESSION 1. The gallbladder is not visualized within 2 hours of imaging suggesting the presence of either acute or chronic cholecystitis. Correlate clinically. Consider correlation with gallbladder ultrasound. Dictated by... Jannet Coppola M.D. THIS IS AN ELECTRONICALLY VERIFIED REPORT Jannet Coppola M.D. at 06/19/2017 2:02 PM [facility] A Service [facility] RADIOLOGY TEXT RESULTS PATIENT: ABDI JOHNSON LOCATION: [facility] 318 : 50 UNIT #: [id number] AGE: [address]: Triston Cleaning MD SEX: M ORDER DR: CLIFTON/stella TD: 06/18/2017 22:05 JOB #: [id number] MEDICAL IMAGING REPORT Page 1 of 1 COPY
--- NOTE | ~2017-06-15 | CO ---
Unit #: [id number] #: [id number] Patient: ABDI JOHNSON [id number] [address] [address] [id number] I MR#: [id number] NAME: ABDI JOHNSON ROOM: 318 Age: 67 Sex: M Admission Date: 06/15/2017 : 1950 Attending Physician: Triston Cleaning M.D. Primary Care Physician: Xenia Beck M.D. Consultation Date: 06/16/2017 CONSULTATION REPORT REASON FOR CONSULTATION Abdominal pain and diarrhea. CONSULTING PHYSICIAN Dr. Chi. Thank you very much for asking us to see Mr. Johnson. He is a 67-year-old white male. He was admitted to the hospital with the complaint of abdominal pain, as well as diarrhea. This began a week ago. He denies any GI bleeding. He has had no GI symptoms. He has symptoms of mild to moderate COPD. He had evaluation by CT scan of the abdomen and pelvis. This revealed persistent extensive circumferential wall thickening in the colon, in the junction of the descending and sigmoid colon to the left upper pelvis, over approximately 15 cm. There is extensive pericolic stranding. It was felt to most likely be inflammatory colitis; however, an underlying colon mass is not excluded. The patient also showed multiple bilateral renal cysts. He presents at this time for further evaluation and treatment. ALLERGIES No known medical allergies. MEDICATIONS Please see med rec sheet. PAST SURGICAL HISTORY Endovascular repair of an abdominal aortic aneurysm 9 or 10 years ago. 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 He has also had back surgery and a hernia repair. PAST MEDICAL HISTORY COPD, asthma, bronchitis, emphysema. SOCIAL HISTORY Positive tobacco use and alcohol use. REVIEW OF SYSTEMS Negative except for above. IMMUNIZATION STATUS Unknown. FAMILY HISTORY Noncontributory. Unit #: [id number] #: [id number] Patient: ABDI JOHNSON PHYSICAL EXAMINATION GENERAL: Well developed, well nourished white male in no apparent distress. Awake, alert and oriented. VITAL SIGNS: Temperature is 98.9, pulse 76, respirations 20, blood pressure 128/68. NECK: Supple. No thyromegaly or adenopathy. BACK: No CVA or spinous tenderness. ABDOMEN: Moderately distended, soft, moderately tender diffusely. No rebound, peritoneal signs or masses. EXTREMITIES: No calf tenderness. DIAGNOSTIC STUDIES LABORATORY STUDIES: Reveal a CMP that shows a glucose of 111, total bilirubin 0.8, and normal liver function studies. White count is 8 with hemoglobin of 14, MCV 90.9. PT and PTT is normal. IMPRESSION 67-year-old white male with thinking of the colon, diarrhea, diffuse abdominal pain, and also given a history of reflux on further questioning. We feel he needs upper, as well as lower endoscopy. All the risks and benefits of the procedure have been placed on the patient in detail, including the risks of bleeding, perforation, emergency surgery, transfer, and other risks. He understands completely and requests to proceed. Dictated by... Lamont Nunez/tiffanie TD: 06/17/2017 07:07 JOB #: [id number] CC: Ofelia Chi M.D. [facility] CONSULTATION REPORT Page 1 of 1 X Moshe Benjamin MD X CONSULTATION REPORT
--- NOTE | ~2017-06-15 | EKG ---
PATIENT: ABDI JOHNSON UNIT #: [id number] Ventricular Rate: 73 BPM Atrial Rate: 73 BPM P-R Interval: 138 ms QRS Duration: 70 ms Q-T Interval: 434 ms QTC Calculation(Bezet): 478 ms P [place]: 70 degrees Calculated R [place]: 81 degrees Calculated T [place]: 90 degrees Diagnosis Line: Normal sinus rhythm Diagnosis Line: Low voltage QRS Diagnosis Line: Cannot rule out Anterior infarct , age Diagnosis Line: undetermined Diagnosis Line: Abnormal ECG Diagnosis Line: When compared with ECG of 16-JUN-2017 06:09, Diagnosis Line: Premature atrial complexes are no longer Present Diagnosis Line: Minimal criteria for Anterior infarct are now Diagnosis Line: Present Diagnosis Line: Nonspecific T wave abnormality no longer evident Diagnosis Line: in Inferior leads Diagnosis Line: Confirmed by HENRI ROMAN MD ([id number]) on 06/20/2017 Diagnosis Line: 10:10:49 PM INTERPRETING MD: ABEL BERNARD
--- NOTE | ~2017-06-15 | EKG ---
PATIENT: ABDI JOHNSON UNIT #: [id number] Ventricular Rate: 162 BPM Atrial Rate: 163 BPM QRS Duration: 80 ms Q-T Interval: 268 ms QTC Calculation(Bezet): 439 ms Calculated R [place]: 100 degrees Calculated T [place]: -42 degrees Diagnosis Line: Supraventricular tachycardia Diagnosis Line: Rightward axis Diagnosis Line: Nonspecific ST and T wave abnormality Diagnosis Line: Abnormal ECG Diagnosis Line: When compared with ECG of 22-MAR-2017 15:16, Diagnosis Line: Vent. rate has increased BY 65 BPM Diagnosis Line: T wave inversion now evident in Inferior leads Diagnosis Line: Nonspecific T wave abnormality now evident in Diagnosis Line: Lateral leads Diagnosis Line: Confirmed by JORDAN AVALOS MD ([id number]) on Diagnosis Line: 06/15/2017 10:47:50 PM INTERPRETING MD: SEBAS
--- NOTE | ~2017-06-15 | OR ---
Unit #: [id number] #: [id number] Patient: ABDI JOHNSON [id number] [address] [place], [place] [address] [id number] I MR#: [id number] NAME: ABDI JOHNSON ROOM: 318 Date of Procedure: 06/15/2017 Admission Date: 06/15/2017 Surgeon: Stoney Bass Jr., M.D. : 1950 Attending Physician: Triston Cleaning M.D. Primary Care Physician: Xenia Beck M.D. OPERATIVE REPORT INDICATIONS FOR PROCEDURE The patient is a 67-year-old white male, who was admitted through the emergency room with complaints of nausea, vomiting, and diarrhea. He had severe abdominal pain, which was mostly nonlocalized. He is brought to the endoscopy suite at this time for upper and lower endoscopy after CT scan of the abdomen revealed evidence of possible colitis with thickening of the descending and sigmoid colons. It was felt that he needed both upper and lower endoscopy. PREOPERATIVE DIAGNOSES Possible occult ulcer disease, possible colitis. 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 One of the rectum was approximately 4 mm in diameter, one of the transverse colon approximately 1 to 2 mm, both were removed. ANESTHESIA MAC anesthesia. PROCEDURES PERFORMED Flexible colonoscopy to the cecum with snare polypectomy of a polyp of the rectum and biopsy using the cold biopsy forceps of a transverse colon polyp. DESCRIPTION OF PROCEDURE The patient was positioned in Lino position with left side down. After being given MAC anesthesia, digital rectal examination was performed, which revealed no palpable mass or tenderness. No blood or stool in the rectal ampulla. The prostate was normal by palpation except for noting it to be somewhat firm, but not nodular or irregular. The Olympus colonoscope was advanced up in the anal canal and retroflexed down to the area of the anorectal region. There was no evidence of any fissures. No significant internal hemorrhoids. The scope was then straightened and advanced up in the rectosigmoid and at approximately 7 to 8 cm within the rectum, there was approximately 4 to 5 mm polyp. This was snared and removed by suctioning out through the scope into the trap and sent to pathology. The base was checked and noted to be totally hemostatic Unit #: [id number] #: [id number] Patient: ABDI JOHNSON without evidence of any bleeding. The scope was then advanced up into the rectosigmoid and sigmoid area, where there were few diverticula present without diverticulitis. The scope was then advanced into the descending colon. Again, there was no evidence of any colitis or evidence of any significant diverticulitis, although there were few diverticula present. The scope was then advanced around the splenic flexure and the transverse colon over the area of the hepatic flexure, where there was another small 1 to 2 mm polyp which was removed with cold biopsy forceps without bleeding. The scope was then advanced around the hepatic flexure and ascending colon down in the area of the cecum. The light from the tip of the scope could be seen transilluminating through right lower quadrant abdominal wall area. Multiple attempts advancing the scope up the distal ileum were unsuccessful. The scope was slowly removed. There were no tumors except for the couple of polyps described. No other major polyps. No tumors or cancer. No AVMs. No evidence of any colitis or acute diverticulitis. The caliber of the colon appeared normal throughout without evidence of narrowing or obstruction. The prep was only fair with a lot of liquid stool in the colon, which was evacuated as much as possible, but could have obscured small polyps. The scope was removed. The patient tolerated the procedure well and discharged in satisfactory condition. Dictated by... Stoney Bass Jr., MKady. TANVI/anamaria TD: 06/17/2017 15:51 JOB #: [id number] OPERATIVE REPORT Page 1 of 1 X Stoney Bass MD X PROCEDURE OPERATIVE NOTE
--- NOTE | ~2017-06-15 | EKG ---
PATIENT: ABDI JOHNSON UNIT #: [id number] Ventricular Rate: 97 BPM Atrial Rate: 97 BPM P-R Interval: 184 ms QRS Duration: 76 ms Q-T Interval: 306 ms QTC Calculation(Bezet): 388 ms P [place]: 72 degrees Calculated R [place]: 94 degrees Calculated T [place]: 66 degrees Diagnosis Line: Sinus rhythm with Premature atrial complexes with Diagnosis Line: Aberrant conduction Diagnosis Line: Right atrial enlargement Diagnosis Line: Rightward axis Diagnosis Line: Nonspecific ST and T wave abnormality Diagnosis Line: Abnormal ECG Diagnosis Line: When compared with ECG of 22-MAR-2017 15:16, Diagnosis Line: Rhythm now sinus Diagnosis Line: Aberrant conduction is now Present Diagnosis Line: QT has shortened Diagnosis Line: Confirmed by JORDAN AVALOS MD ([id number]) on Diagnosis Line: 06/15/2017 10:49:15 PM INTERPRETING MD: SEBAS
--- NOTE | ~2017-06-15 | OR ---
Unit #: [id number] #: [id number] Patient: ABDI JOHNSON [id number] [address] [place], [place] [address] [id number] I MR#: [id number] NAME: ABDI JOHNSON ROOM: 318 Date of Procedure: 06/20/2017 Admission Date: 06/15/2017 Surgeon: Stoney Bass Jr., M.D. : 1950 Attending Physician: Triston Cleaning M.D. Primary Care Physician: Xenia Beck M.D. OPERATIVE REPORT INDICATIONS FOR PROCEDURE The patient is a 67-year-old white male, who was admitted through the emergency room complaining of nausea, vomiting, upper abdominal pain, and diarrhea. His workups revealed evidence of an obstructed gallbladder with nonvisualization on HIDA scan. He is brought to the operating room at this time for laparoscopic cholecystectomy, assuming he has acute cholecystitis. PREOPERATIVE DIAGNOSES Acute cholecystitis with cystic duct obstruction. POSTOPERATIVE DIAGNOSES Acute cholecystitis with cystic duct obstruction, noting some subacute cholecystitis. ANESTHESIA General with endotracheal intubation and 0.5% Marcaine with epinephrine locally at the port sites. PROCEDURE PERFORMED Laparoscopic cholecystectomy. DESCRIPTION OF PROCEDURE The patient was positioned in supine position. After being anesthetized and intubated, he was prepped and draped in routine fashion for laparoscopic cholecystectomy. A small supraumbilical incision was made approximately a 1 cm in length. This was carried out down through the subcutaneous tissue into the fascia. The fascia was lifted with a towel clip along with the umbilicus and a Veress needle introduced into the abdomen. The abdomen was then inflated with CO2 gas. A 5-mm port was introduced in the abdomen followed by the camera. There was no evidence of any injury related to introduction of the Veress needle or the port. Brief intra-abdominal exploration was carried out. The patient was noted to have some adhesions in the left lower quadrant probably related to some previous diverticulitis, but nothing acute. Also, the gallbladder appeared chronically inflamed. Two 5-mm ports were placed laterally and an 11-mm port just right of the upper midline. The gallbladder was lifted. It was not significantly tense as it was expected with hydrops gallbladder or an obstructed gallbladder. Dissection was then carried out in the triangle of Calot, cystic duct which was 1 to 2 mm diameter was isolated, hemoclipped x4 and divided approximately a 1 cm from its junction with the common duct. The cystic artery was identified, Unit #: [id number] #: [id number] Patient: ABDI JOHNSON hemoclipped x3, and divided. The gallbladder was then removed from its bed with the hook cautery using a current of 20 and after it was released, it was removed through the upper midline incision along with the grasping clamp and the port. The port was replaced and subhepatic space checked. A small amount of oozing from the gallbladder bed was controlled with the hook cautery using a current of 20. After total hemostasis was noted and a small amount of fluid removed with a sponge directly packed in and directly brought out, sponge and instrument counts were correct x3. The CO2 was expressed from the abdomen. The fascia in the larger port site approximated with the neoClose technique. The wounds were irrigated. After hemostasis achieved with Bovie cautery, skin edges were approximated with stainless-steel skin clips and skin stapling device. All port sites were injected with 0.5% Marcaine with epinephrine locally. Sterile dressings were applied externally. Estimated blood loss less than 50 mL. The patient received less than 1500 mL crystalloid solution during the procedure. Sponges and instrument counts were correct x3. No drains were used. No complications. The patient was taken to the recovery room with stable vital signs in satisfactory condition. Dictated by... Stoney Bass Jr., MFranco TINAJERO/anamaria TD: 06/20/2017 15:19 JOB #: [id number] OPERATIVE REPORT Page 1 of 1 X Stoney Bass MD PROCEDURE OPERATIVE NOTE
--- NOTE | ~2017-06-15 | CR72 ---
[facility] A Service of [facility] RADIOLOGY TEXT RESULTS PATIENT: ABDI JOHNSON LOCATION: [facility] 318-01 : 50 UNIT #: [id number] AGE: [address]: Triston Cleaning MD SEX: M ORDER DR: [id number] [facility] [address] [facility]. [place], [place] [address] [id number] I MR#: [id number] Acc #: [id number] NAME: ABDI JOHNSON : 1950 SEX: M STUDY DATE/TIME: 06/18/2017 11:06 UNIT: [address] ROOM: [facility] STUDY DESCRIPTION: CR Chest Single View Portable Attending Physician: Triston Cleaning M.D. Ordering Physician: Martinez Burrows M.D. Primary Care Physician: Xenia Beck M.D. MEDICAL IMAGING REPORT This report is preliminary unless electronic signature is present EXAM Portable AP view of the chest. COMPARISONS March 22, 2017 and November 03, 2016. INDICATION 67-year-old male with dyspnea for 1 week. FINDINGS Cardiomediastinal silhouette is within normal limits. There is no evidence of pneumothorax or pleural effusion. Allowing for differences in inspiratory effort, bronchovascular structures are likely stable. No evidence of acute airspace disease. IMPRESSION No acute radiographic abnormality of the chest. Normal heart size. Dictated by... Skyler Mckeon M.D. THIS IS AN ELECTRONICALLY VERIFIED REPORT Skyler Mckeon M.D. at 06/20/2017 10:23 PM IVELISSE/ignacio TD: 06/18/2017 14:54 JOB #: [id number] MEDICAL IMAGING REPORT Page 1 of 1 COPY
[~2017-06-15 09:53] MED LIST changes: +DOXYCYCLINE HY100 M4 PO; +PREDNISONE
[2017-06-15 10:54] LABS: BASOPHIL# 0.1 X10e3 (0-0.3); BASOPHIL% 0.7 % (0-2.5); EOSINOPHIL% 0.1 % (0.0-7.0); HEMATOCRIT 49.9 % (38.0-50.0); HEMOGLOBIN 16.7 gm/dL (13.0-16.0); LYMPHOCYTE# 1.3 X10e3 (1.0-3.5); MEAN CELL VOLUME 90.7 FL (83-96); MEAN CORPUSCULAR HEMOGLOBIN 30.3 PG (28-34); MEAN CORPUSCULAR HGB CONC 33.4 g/dL (30-36); MEAN PLATELET VOLUME 8.7 FL (6.5-11.5); MONOCYTE# 1.1 X10e3 (0-1.0); MONOCYTE% 7.3 % (3.0-12.0); NEUTROPHIL# 12.2 X10e3 (1.5-7.1); NEUTROPHIL% 82.9 % (40-75); PLATELET COUNT 359 X10e3 (140-420); WHITE BLOOD COUNT 14.8 X10e3 (4.0-10.5)
[2017-06-15 10:57] LABS: DIFF IND NO
[2017-06-15 11:21] LABS: ALBUMIN SERUM 3.9 g/dL (3.5-5.0); BILIRUBIN, DIRECT 0.4 mg/dL (0.0-0.2); BILIRUBIN,TOTAL 1.4 mg/dL (0.2-2.0); BUN/CREATININE RATIO 12.3; CREATININE SERUM 1.3 mg/dL (0.6-1.4); GLOM FILT RATE Estimated 56.5 mL/min (>60); POTASSIUM 3.8 mmol/L (3.5-5.1); PROTEIN TOTAL SERUM 7.8 g/dL (6.0-8.3)
[2017-06-15 13:26] LABS: POC - TROPONIN <0.05 ng/mL (<=0.05)
[2017-06-15] MEDS ORDERED: SYMBICORT INH (14:19)
[2017-06-15] MEDS ORDERED: [UNRECOGNIZED DRUG - REMARK] (14:19)
[2017-06-15 14:48] LABS: INR 1.1; PROTHROMBIN TIME (PATIENT) 11.4 SECONDS (10.0-11.7)
[2017-06-15 15:41] LABS: POC - CKMB 7.9 ng/mL (0.0-7.9); POC - TROPONIN <0.05 ng/mL (<=0.05)
[2017-06-16 05:54] LABS: HEMATOCRIT 41.1 % (38.0-50.0); MEAN CELL VOLUME 90.9 FL (83-96); MEAN CORPUSCULAR HEMOGLOBIN 30.9 PG (28-34); MEAN PLATELET VOLUME 8.5 FL (6.5-11.5); RED BLOOD COUNT 4.52 X10e (3.90-5.60); RED CELL DISTRIBUTION WIDTH 13.1 % (11.0-15.5)
[2017-06-16 07:23] LABS: BILIRUBIN,TOTAL 0.8 mg/dL (0.2-2.0); GLOM FILT RATE Estimated 77.5 mL/min (>60); POTASSIUM 3.9 mmol/L (3.5-5.1); PROTEIN TOTAL SERUM 6.1 g/dL (6.0-8.3)
[2017-06-16 07:57] LABS: URINE SOURCE CLEAN CATCH
[2017-06-16 08:04] LABS: URINE APPEARANCE CLEAR; URINE BLOOD NEG (NEG); URINE COLOR DK YELLOW; URINE GLUCOSE NEG (NEG); URINE KETONE TRACE (NEG); URINE LEUKOCYTE ESTERASE TRACE (NEG); URINE NITRATE NEG (NEG); URINE PROTEIN TRACE (NEG); URINE SPECIFIC GRAVITY 1.028 (1.003-1.035)
[2017-06-16 08:07] LABS: CULTURE INDICATED? YES; URBCS1 AUWI 0-2 /[HPF] (0-2); URINE BACTERIA AUWI NEG (NEGATIVE); URINE SQUAMOUS EPITHELIAL CELL OCC /[HPF]
[2017-06-16 08:14] LABS: URINE BILIRUBIN NEG (NEG)
[2017-06-17 05:53] LABS: HEMATOCRIT 41.1 % (38.0-50.0); HEMOGLOBIN 13.9 gm/dL (13.0-16.0); MEAN CELL VOLUME 90.5 FL (83-96); MEAN CORPUSCULAR HEMOGLOBIN 30.6 PG (28-34); MEAN CORPUSCULAR HGB CONC 33.9 g/dL (30-36); MEAN PLATELET VOLUME 8.6 FL (6.5-11.5); RED BLOOD COUNT 4.54 X10e (3.90-5.60); RED CELL DISTRIBUTION WIDTH 12.9 % (11.0-15.5); WHITE BLOOD COUNT 7.6 X10e3 (4.0-10.5)
[2017-06-17 06:45] LABS: ALBUMIN SERUM 3.2 g/dL (3.5-5.0); BILIRUBIN,TOTAL 0.6 mg/dL (0.2-2.0); BUN/CREATININE RATIO 13.33; CALCIUM SERUM 8.3 mg/dL (8.4-10.2); CREATININE SERUM 0.9 mg/dL (0.6-1.4); GLOM FILT RATE Estimated 88.1 mL/min (>60); POTASSIUM 3.7 mmol/L (3.5-5.1)
[2017-06-17] MEDS ORDERED: VENTOLIN (13:41)
[2017-06-17] MEDS ORDERED: LIPITOR40 MG PO (13:42)
[2017-06-17] MEDS ORDERED: PRADAXA150 MG PO (13:42)
[2017-06-17] MEDS ORDERED: LOPRESSOR PO (13:42)
[2017-06-17] MEDS ORDERED: AMIODARONE HCL200 MG PO (13:42)
[2017-06-18 07:08] LABS: BUN/CREATININE RATIO 15.55; CREATININE SERUM 0.9 mg/dL (0.6-1.4); GLOM FILT RATE Estimated 88.1 mL/min (>60); POTASSIUM 3.2 mmol/L (3.5-5.1)
[2017-06-19 05:10] LABS: HEMOGLOBIN 13.1 gm/dL (13.0-16.0); MEAN CELL VOLUME 91.9 FL (83-96); MEAN CORPUSCULAR HEMOGLOBIN 30.8 PG (28-34); MEAN CORPUSCULAR HGB CONC 33.6 g/dL (30-36); MEAN PLATELET VOLUME 8.4 FL (6.5-11.5); RED BLOOD COUNT 4.24 X10e (3.90-5.60); RED CELL DISTRIBUTION WIDTH 13.2 % (11.0-15.5); WHITE BLOOD COUNT 10.6 X10e3 (4.0-10.5)
[2017-06-19 07:04] LABS: CALCIUM SERUM 7.9 mg/dL (8.4-10.2); GLOM FILT RATE Estimated 77.5 mL/min (>60); MAGNESIUM 2.5 mg/dL (1.6-3.0)
[2017-06-20 05:40] LABS: HEMATOCRIT 38.5 % (38.0-50.0); HEMOGLOBIN 12.8 gm/dL (13.0-16.0); MEAN CELL VOLUME 91.8 FL (83-96); MEAN CORPUSCULAR HEMOGLOBIN 30.6 PG (28-34); MEAN CORPUSCULAR HGB CONC 33.3 g/dL (30-36); MEAN PLATELET VOLUME 8.2 FL (6.5-11.5); RED BLOOD COUNT 4.19 X10e (3.90-5.60); RED CELL DISTRIBUTION WIDTH 13.3 % (11.0-15.5); WHITE BLOOD COUNT 10.9 X10e3 (4.0-10.5)
[2017-06-20 06:41] LABS: BUN/CREATININE RATIO 18.75; CALCIUM SERUM 7.6 mg/dL (8.4-10.2); CREATININE SERUM 0.8 mg/dL (0.6-1.4); GLOM FILT RATE Estimated 92.5 mL/min (>60); MAGNESIUM 2.5 mg/dL (1.6-3.0); POTASSIUM 4.2 mmol/L (3.5-5.1)
[2017-06-21 04:52] LABS: HEMATOCRIT 38.2 % (38.0-50.0); HEMOGLOBIN 12.7 gm/dL (13.0-16.0); MEAN CELL VOLUME 91.7 FL (83-96); MEAN CORPUSCULAR HEMOGLOBIN 30.5 PG (28-34); MEAN CORPUSCULAR HGB CONC 33.2 g/dL (30-36); MEAN PLATELET VOLUME 8.3 FL (6.5-11.5); RED BLOOD COUNT 4.17 X10e (3.90-5.60); WHITE BLOOD COUNT 12.2 X10e3 (4.0-10.5)
[2017-06-21 06:55] LABS: ALBUMIN SERUM 2.9 g/dL (3.5-5.0); BILIRUBIN,TOTAL 0.5 mg/dL (0.2-2.0); CALCIUM SERUM 7.6 mg/dL (8.4-10.2); CREATININE SERUM 0.8 mg/dL (0.6-1.4); GLOM FILT RATE Estimated 92.5 mL/min (>60); POTASSIUM 4.6 mmol/L (3.5-5.1); PROTEIN TOTAL SERUM 4.9 g/dL (6.0-8.3)
[2017-06-21] MEDS ORDERED: ACETAMINOPHEN325 MG PO (10:37)
[2017-06-21] MEDS ORDERED: CARAFATE1 GM PO (10:38)
[2017-06-21] MEDS ORDERED: PROTONIX PO (10:38)
[2017-06-21] MEDS ORDERED: FLAGYL250 M1 PO (10:39)
[2017-06-21] MEDS ORDERED: AUGMENTIN PO (10:39)
[2017-06-21] MEDS ORDERED: HYDROCODON-ACE1 EAC9 PO (10:40)
[2017-06-21] MEDS ORDERED: PREDNISONE (10:41)
[2017-06-21] MEDS ORDERED: DUONEB INH (10:46)
== END 2017-06-21 15:45 | disposition home or self-care (01) | DRG 418 ==
LOC: CED 09:53 → C3A PCU 14:20 → CEDOF 14:20 → CED 14:48 → CEDOF 14:48 → C3A PCU 17:30
PROVIDERS: Emergency Medicine; Hospitalist; Internal Medicine Cardiovascular Disease; Nurse Practitioner; Physician Assistant Medical; Specialist; Surgery
PROC: 0DJ08ZZ Inspection of Upper Intestinal Tract, Via Natural or Artificial Opening Endoscopic (ICD-10-PCS; 2017-06-15)
PROC: 0DBP8ZX Excision of Rectum, Via Natural or Artificial Opening Endoscopic, Diagnostic (ICD-10-PCS; 2017-06-15)
PROC: 0DBL8ZX Excision of Transverse Colon, Via Natural or Artificial Opening Endoscopic, Diagnostic (ICD-10-PCS; 2017-06-15)
PROC: 0TF6XZZ Fragmentation in Right Ureter, External Approach (ICD-10-PCS; 2017-06-15)
PROC: 0FT44ZZ Resection of Gallbladder, Percutaneous Endoscopic Approach (ICD-10-PCS; principal; 2017-06-20 13:00)
DX: K81.0 Acute cholecystitis (principal); N20.1 Calculus of ureter; J96.10 Chronic respiratory failure, unspecified whether with hypoxia or hypercapnia; I42.6 Alcoholic cardiomyopathy; I27.2 Other secondary pulmonary hypertension; K82.0 Obstruction of gallbladder; K22.10 Ulcer of esophagus without bleeding; I48.92 Unspecified atrial flutter; J44.1 Chronic obstructive pulmonary disease with (acute) exacerbation; I48.0 Paroxysmal atrial fibrillation; I10 Essential (primary) hypertension; E78.5 Hyperlipidemia, unspecified; I73.9 Peripheral vascular disease, unspecified; Z87.891 Personal history of nicotine dependence; I08.3 Combined rheumatic disorders of mitral, aortic and tricuspid valves; G47.30 Sleep apnea, unspecified; K63.5 Polyp of colon; K29.70 Gastritis, unspecified, without bleeding; Z82.49 Family history of ischemic heart disease and other diseases of the circulatory system
CPT/HCPCS: 36415; 71010; 74000; 74176; 78226; 80048; 80053; 80076; 81003; 82553; 82947; 83690; 83735; 83880; 84443; 84484; 85025; 85027; 85610; 87045; 87077; 87086; 87177; 87209; 87427; 87493; 87899; 88304; 88305; 93005; 94010; 94640; 94664; 94760; 96361; 96365; 96366; 96375; 99285; A9537; J0131; J0153; J0330; J0360; J1650; J2250; J2270; J2405; J2543; J2550; J2710; J2765; J2805; J2920; J3010; J3475; J3480

== ENCOUNTER 2017-06-30 12:35 | Inpatient (IN) | payer OTHER ==
[~2017-06-30] VITALS: Ht 170.2 cm; Wt 75.0 kg
--- NOTE | ~2017-06-30 | DS ---
Unit #: [id number] #: [id number] Patient: ABDI JOHNSON [id number] [address] [address] [id number] I MR#: [id number] NAME: ABDI JOHNSON ROOM: 574 Age: 67 Sex: M Admission Date: 06/30/2017 : 1950 Discharge Date: 07/05/2017 Attending Physician: Francia Porter M.D. Primary Care Physician: Xenia Beck M.D. DISCHARGE SUMMARY DISCHARGE DIAGNOSES 1. Atrial flutter with rapid ventricular rate. 2. Sepsis present on admission. 3. Urinary tract infection with Escherichia coli. 4. Urinary retention needing Khan catheter. 5. Acute kidney injury. 6. Chronic kidney disease stage 2. 7. Mild hydronephrosis. 8. Hypertension. 9. Hyperlipidemia. 10. Hyperkalemia. 11. Hematuria. 12. Proteinuria. 13. Hypokalemia. 14. On chronic anticoagulation, on Pradaxa, for atrial fibrillation. 15. Chronic systolic heart failure. 16. Pulmonary hypertension. 17. Peripheral vascular disease, status post abdominal aortic aneurysm repair 10 years ago. 18. Chronic obstructive pulmonary disease, stable. 19. Acute cholecystitis with the cystic duct dilatation, status post recent laparoscopic cholecystectomy on June 20, 2017. CONSULTATIONS Dr. Matute and Dr. Vera. PROCEDURES None. DIAGNOSTIC STUDIES LAB DATA: Sodium 140, potassium 5.2, creatinine 1.1, WBC 8.4, hemoglobin 11.9, platelets 236. Stool cultures negative. Urine cultures are growing E. coli. C. diff negative. Magnesium 1.9. Lactic acid 1.6 and 2.2. IMAGING: CT of the abdomen and pelvis shows status post laparoscopic cholecystectomy. Severely distended gallbladder. Mild hydronephrosis present. Too numerous to count bilateral renal cortical cysts present. ALLERGIES None. DISCHARGE MEDICATIONS 1. Albuterol one puff inhalation daily p.r.n. shortness of breath. Unit #: [id number] #: [id number] Patient: ABDI JOHNSON 2. Symbicort 160 mcg two puff inhalation b.i.d. 3. DuoNebs one inhalation three times daily 3 mL. 4. Flomax 0.8 p.o. daily. 5. Amiodarone 100 daily. 6. Tylenol 650 q.4 p.r.n. pain. 7. Pradaxa 150 p.o. b.i.d. 8. Lopressor 50 p.o. b.i.d. 9. Lipitor 40 daily. 10. Carafate 1 g p.o. three times daily. 11. [place] 7.5 mg q.4 h. p.r.n. pain. 12. Protonix 40 p.o. daily. 13. Keflex 500 p.o. t.i.d. for three days. HOSPITALIZATION COURSE [age] year old admitted because of abnormal labs. Sepsis with urinary tract infection. Patient was given broad-spectrum antibiotics. Urine cultures are growing E. coli. Patient is on Rocephin. Patient will be discharged on Keflex for three more days. Urinary retention with hematuria and proteinuria. Patient is seen by Urology and Nephrology. Patient had Khan catheter. Currently voiding trial shows patient could not void and the bladder scan shows 900. Most likely patient needs the Khan catheter after discharge. Waiting on Urology opinion. Continue with Flomax 0.8 mg p.o. daily. Acute kidney injury with a chronic kidney disease stage 2, currently with mild hyperkalemia, stable. Recent laparoscopic cholecystectomy and currently eating okay. [place] have been removed during this hospitalization course. Atrial flutter with rapid ventricular rate. Patient is seen by Cardiology. Currently normal sinus rhythm. Continue with Pradaxa. His metoprolol dose has been increased. DISPOSITION Patient will be discharged home after seen by Urology. DISCHARGE INSTRUCTIONS 1. Patient might need Khan catheter upon discharge. 2. Follow with family physician in one week's time. 3. Follow with Dr. Sandoval in four to six weeks' time. 4. Follow with Dr. Matute on 08/22/2017. Discharge time taken is 31 minutes. Dictated by... Lamont Simmons/teo TD: 07/05/2017 22:29 JOB #: [id number] Unit #: [id number] #: [id number] Patient: ABDI JOHNSON DISCHARGE SUMMARY Page 1 of 1 X Francia Porter MD DISCHARGE SUMMARY
--- NOTE | ~2017-06-30 | CR72 ---
[facility] A Service of [facility] RADIOLOGY TEXT RESULTS PATIENT: ABDI JOHNSON LOCATION: [facility] 574-01 : 50 UNIT #: [id number] AGE: [address]: Francia Porter MD SEX: M ORDER DR: [id number] [facility] [address] [facility]. [place], [place] [address] [id number] I MR#: [id number] Acc #: [id number] NAME: ABDI JOHNSON : 1950 SEX: M STUDY DATE/TIME: 06/30/2017 17:57 UNIT: [facility] ROOM: [facility] STUDY DESCRIPTION: CR Chest Single View Portable Attending Physician: Donna Andre M.D. Ordering Physician: Arnulfo Sharp M.D. Primary Care Physician: Xenia Beck M.D. MEDICAL IMAGING REPORT This report is preliminary unless electronic signature is present EXAM Portable chest HISTORY Shortness of air x2 weeks. COMPARISON 06/30/2017 FINDINGS Portable view of the chest demonstrates pulmonary hyperinflation, hyperlucency suggesting emphysema. No infiltrates or effusions. Heart, mediastinum, great vessels and bony thorax appear normal. No pneumothorax. Dictated by... Naresh Echols M.D. THIS IS AN ELECTRONICALLY VERIFIED REPORT Naresh Echols M.D. at 07/01/2017 6:54 PM VIOLA/sonali TD: 07/01/2017 01:34 JOB #: [id number] MEDICAL IMAGING REPORT Page 1 of 1 COPY
--- NOTE | ~2017-06-30 | CO ---
Unit #: [id number] #: [id number] Patient: ABDI JOHNSON [id number] [address] [place], [place] [address] [id number] I MR#: [id number] NAME: ABDI JOHNSON ROOM: 574 Age: 67 Sex: M Admission Date: 06/30/2017 : 1950 Attending Physician: Francia Porter M.D. Primary Care Physician: Xenia Beck M.D. CONSULTATION REPORT REASON FOR CONSULTATION Increased creatinine. HISTORY OF PRESENT ILLNESS Mr. Johnson is a 67-year-old male, who presented to the emergency department on 06/30/2017 because of complaints of abdominal discomfort. It was of moderate, but increasing degree and was associated with constipation. He was not having any vomiting, had not noticed any bloody bowel movements. He had noted decreased appetite. He saw his primary care physician, and was sent to the emergency department, where he have normal labs. His kidney history included decreasing urine volume and sensation of some difficulty emptying his bladder. Serum creatinine in the emergency department was 1.7; it had been 0.8 in late 05/2017. Imaging was done with CT scan showing hydronephrosis. Urology was consulted. Khan catheter was placed with brisk return of large urine volume. Home medications did not include reported nonsteroidals. PAST MEDICAL HISTORY Included atrial fibrillation, hypertension, congestive heart failure (followed by Dr. Matute), history of pulmonary hypertension, and recent cholecystectomy. FAMILY HISTORY Negative for end-stage renal disease. Positive for coronary artery disease. SOCIAL HISTORY Includes past cigarette smoking, having stopped in 2016. SYSTEM REVIEW Included some lower extremity swelling, some low volume incontinence. No fever, sweats, or chills. No palpitations or angina. It is otherwise noncontributory. PHYSICAL EXAMINATION VITAL SIGNS: Includes blood pressure of 137/72, heart rate 75, respirations 18. GENERAL: He is awake, but lethargic. HEENT: Conjunctivae are pink. There is no bloody nasal discharge. Oral mucous membranes are reasonably moist. NECK: Jugular venous pressure appears normal. Thyromegaly is not noted. SKIN: Warm and dry with moderate turgor. LUNGS: Reveal no crackles or significant wheezes. HEART: Reveals no rub or S3. Unit #: [id number] #: [id number] Patient: ABDI JOHNSON ABDOMEN: Soft, nontender. : No CVA tenderness. No bladder distention with Khan catheter draining clear jose roberto urine. VASCULAR: Includes no flank bruits. EXTREMITIES: Includes no significant increased edema. DIAGNOSTIC STUDIES LABORATORY RESULTS: Included creatinine improved to 1.1, potassium was low in the a.m. but treated and repeated at 3.9. Calcium 8.1. ASSESSMENT Acute renal failure secondary to obstruction. Seen by Urology, treated with Khan catheter. Creatinine is decreasing. We will re-evaluate serially to make sure he continues to improving toward prior baseline before expanding differential significantly. Thanks for letting me to see Mr. Johnson. Dictated by... Vito Murrieta M.D. REL/modl TD: 07/05/2017 13:50 JOB #: [id number] CONSULTATION REPORT Page 1 of 1 X Vito Murrieta MD X CONSULTATION REPORT
--- NOTE | ~2017-06-30 | CO ---
Unit #: [id number] #: [id number] Patient: ABDI JOHNSON [id number] [address] [place], [place] [address] [id number] I MR#: [id number] NAME: ABDI JOHNSON ROOM: 574 Age: 67 Sex: M Admission Date: 06/30/2017 : 1950 Attending Physician: Francia Porter M.D. Primary Care Physician: Xenia Beck M.D. Consultation Date: 07/02/2017 CONSULTATION REPORT REASON FOR CONSULTATION Atrial flutter. HISTORY OF PRESENT ILLNESS This is a 67-year-old male with a past medical history of atrial fib/flutter with rapid ventricular response, on chronic anticoagulation with Pradaxa; hypertension; hyperlipidemia; COPD; peripheral vascular disease, status post AAA repair 10 years ago; and pulmonary hypertension. The patient was here recently in May secondary to nausea, vomiting, diarrhea, and abdominal pain. He was found to have cholecystitis and underwent laparoscopic cholecystectomy. We evaluated the patient at that time for atrial fib/flutter. He was discharged on 06/21. He tells me that over the last couple of days, he has been having severe persistent abdominal pain. He states it has been occurring since discharge, but has progressively worsened over the last two days, it has been not tolerated well. He also complains of difficulty with urination. He denies any constipation or any blood in his stool. He went ahead and went in to see his primary care physician today. White blood count was noted to be elevated. He was sent to the emergency room for further evaluation. On arrival to the ER, the patient was noted to be in atrial flutter with rapid ventricular response. Blood pressure was running in the one teens. He was afebrile. Oxygen saturation was 92% on room air. At one point, his heart rate got up into the 160s, atrial flutter with variable AV conduction. He was given 2 L of normal saline as well as adenosine for a total of 18 mg followed by Cardizem bolus as well as amiodarone bolus and 0.25 mg of digoxin. The patient then converted into normal sinus rhythm, which he is maintaining at this time. It is also notable that the patient had a CT of the abdomen performed and pelvis, which showed a severely distended bladder with mild hydronephrosis, and a urinalysis concerning for urinary tract infection. Urinalysis showed 3+ leukocytes and 2+ protein, as well as 4+ blood. Urology has been consulted. Initial lactic acid was noted to be 2.2. Potassium was slightly low at 3.5, BUN was 18, and creatinine 1.7. At present, he is resting in bed. He has a Khan catheter in place. Urology has already been into scene and evaluated him. He states his pain is much improved as compared to what it was before. He is currently in normal sinus rhythm with heart rate in the 80s, on chronic anticoagulation Unit #: [id number] #: [id number] Patient: ABDI JOHNSON with Pradaxa. PAST MEDICAL HISTORY 1. Atrial fibrillation/flutter. 2. Hypertension. 3. Hyperlipidemia. 4. COPD. 5. Peripheral vascular disease, status post abdominal aortic aneurysm repair approximately 10 years ago. 6. Pulmonary hypertension. 7. History of urinary retention. 8. Cardiac catheterization in 08/26/2016 showed an EF of 45% with no significant coronary artery stenosis. 9. A 2D echocardiogram from 07/2016 showed mild LVH and mildly dilated right ventricle, mild aortic stenosis, mild MR, mild TR, RVSP of 47 mmHg, ejection fraction was 55%. PAST SURGICAL HISTORY 1. Bilateral inguinal hernia repair. 2. Abdominal aortic aneurysm repair 10 years ago. 3. Back surgery. 4. Recent laparoscopic cholecystectomy. SOCIAL HISTORY The patient is a reformed tobacco user. He quit about a year ago, prior to that he was smoking half pack a day for 30+ years. Denies illicit drugs or alcohol use. He lives with his daughter. FAMILY HISTORY Positive for an MT in his mother at the age of 52. ALLERGIES No known drug allergies. HOME MEDICATIONS 1. Symbicort 160/4.5 two puffs inhalation b.i.d. 2. Pradaxa 150 mg p.o. b.i.d. 3. Amiodarone 200 mg p.o. daily. 4. Lopressor 25 mg p.o. b.i.d. 5. Lipitor 40 daily. 6. Tylenol 650 q.6 p.r.n. 7. Carafate t.i.d. 8. Protonix 40 mg daily. 9. [place] 7.5/325 q.4 hours p.r.n. 10. Ventolin inhalation daily p.r.n. 11. Lasix 20 mg p.o. daily. 12. Flomax 0.4 mg daily. 13. DuoNeb t.i.d. p.r.n. REVIEW OF SYSTEMS CONSTITUTIONAL: Denies recent weight loss or weight gain. HEENT: Denies blurred vision or headaches. CARDIOVASCULAR: Occasional shortness of breath and intermittent lower extremity swelling of his legs. Denies chest pain, PND, or orthopnea. GASTROINTESTINAL: Positive for abdominal pain as stated above, which is improved. Denies melena or hematochezia. MUSCULOSKELETAL: Positive for lower extremity swelling. Denies claudication or DVT. Unit #: [id number] #: [id number] Patient: ABDI JOHNSON NEUROLOGIC: Denies previous stroke, headache, dizziness, or syncopal episodes. DIAGNOSTIC STUDIES IMAGING RESULTS: 1. CT of the abdomen shows status post cholecystectomy without obvious complication. 2. Severely distended bladder measuring well over 21 cm in length suggestive of a high-grade bladder outlet obstruction or acute urinary retention. There is mild associated hydronephrosis. 3. Dlo-gtwcqrdc-tu-count bilateral renal cortical cysts some of which are hyperdense and compatible of proteinaceous cysts, but are unchanged from prior studies. 4. Chest x-ray demonstrates pulmonary hyperinflation and hyperlucency suggesting emphysema. No infiltrates or effusions. Heart, mediastinum, and great vessels appear normal. No pneumothorax. LABORATORY RESULTS: Glucose 100, BUN 16, creatinine 1.3, sodium 139, potassium 3.2, chloride 96, CO2 is 33, calcium 7.8, and magnesium 2.2. Troponins have been negative. BNP was 137. TSH 1.21. Hemoglobin 11.2, hematocrit 34.2, WBCs 15.5, and platelet count 188. Urinalysis shows 3+ leukocyte esterase, nitrite negative, 2+ protein, 4+ blood, rbc's and wbc's are innumerable. Currently, has a urine culture that is pending. Preliminary blood cultures are negative. CARDIOVASCULAR RESULTS: EKG shows normal sinus rhythm at 83 beats per minute, nonspecific ST-T wave abnormalities noted. No acute ischemic change. IMPRESSION 1. Recurrent atrial flutter with 2:1 conduction. 2. Alcohol induced cardiomyopathy. 3. Proteinuria, questionable nephrotic syndrome. 4. Bladder outlet obstruction versus urinary retention. 5. Urinary tract infection. 6. Acute kidney injury. 7. Hypertension. 8. Hyperlipidemia. 9. Reformed tobacco. 10. 2D echocardiogram, 06/29/2017, left ventricular ejection fraction of 65, mild mitral regurgitation, tricuspid regurgitation, right ventricular systolic pressure was normal. 11. Normal coronary arteries in 08/2016. 12. History of abdominal aortic aneurysm repair. PLAN The patient is currently in normal sinus rhythm. We will plan to increase metoprolol to control heart rate if a-flutter recurs. At present, we will continue amiodarone and beta henrry as well as anticoagulation with Pradaxa. We will evaluate proteinuria and leg edema. Thank you for asking us to see this pleasant patient. We appreciate the consult. LMW/modl TD: 07/02/2017 13:47 Unit #: [id number] #: [id number] Patient: ABDI JOHNSON JOB #: [id number] Dictated by... Chel Grijalva A.P.R.N. LMW/modl TD: 07/03/2017 02:01 JOB #: [id number] CONSULTATION REPORT Page 1 of 1 X Chel Grijalva APRN X CONSULTATION REPORT
--- NOTE | ~2017-06-30 | EKG ---
PATIENT: ABDI JOHNSON UNIT #: [id number] Ventricular Rate: 110 BPM Atrial Rate: 110 BPM P-R Interval: 168 ms QRS Duration: 76 ms Q-T Interval: 508 ms QTC Calculation(Bezet): 687 ms P [employer]: 80 degrees Calculated R [employer]: 81 degrees Calculated T [employer]: 76 degrees Diagnosis Line: Sinus tachycardia with frequent Premature Diagnosis Line: ventricular complexes Diagnosis Line: Septal infarct (cited on or before 20-JUN-2017) Diagnosis Line: ST and T wave abnormality, consider anterolateral Diagnosis Line: ischemia Diagnosis Line: Prolonged QT Right atrial enlargement Diagnosis Line: Abnormal ECG Diagnosis Line: When compared with ECG of 20-JUN-2017 06:26, Diagnosis Line: Significant changes have occurred Diagnosis Line: Confirmed by MEREDITH CHAO MD ([id number]) on 07/01/2017 Diagnosis Line: 5:49:27 PM INTERPRETING MD: ZHANNA BERNARD
--- NOTE | ~2017-06-30 | CO ---
Unit #: [id number] #: [id number] Patient: ABDI JOHNSNO [id number] [facility]. [place], [place] [address] [id number] I MR#: [id number] NAME: ABDI JOHNSON ROOM: 574 Age: 67 Sex: M Admission Date: 06/30/2017 : 1950 Attending Physician: Francia Porter M.D. Primary Care Physician: Xenia Beck M.D. Consultation Date: 06/30/2017 CONSULTATION REPORT JOB NOTE: INCOMPLETE DICTATION. REASON FOR CONSULTATION Atrial flutter. HISTORY OF PRESENT ILLNESS This is a 67-year-old male with a past medical history of atrial fib/flutter with rapid ventricular response, on chronic anticoagulation with Pradaxa; hypertension; hyperlipidemia; COPD; peripheral vascular disease, status post AAA repair 10 years ago; and pulmonary hypertension. The patient was here recently in May secondary to nausea, vomiting, diarrhea, and abdominal pain. He was found to have cholecystitis and underwent laparoscopic cholecystectomy. We evaluated the patient at that time for atrial fib/flutter. He was discharged on 06/21. He tells me that over the last couple of days, he has been having severe persistent abdominal pain. He states it has been occurring since discharge, but has progressively worsened over the last two days, it has been not tolerated well. He also complains of difficulty with urination. He denies any constipation or any blood in his stool. He went ahead and went in to see his primary care physician today. White blood count was noted to be elevated. He was sent to the emergency room for further evaluation. On arrival to the ER, the patient was noted to be in atrial flutter with rapid ventricular response. Blood pressure was running in the one teens. He was afebrile. Oxygen saturation was 92% on room air. At one point, his heart rate got up into the 160s, atrial flutter with variable AV conduction. He was given 2 L of normal saline as well as adenosine for a total of 18 mg followed by Cardizem bolus as well as amiodarone bolus and 0.25 mg of digoxin. The patient then converted into normal sinus rhythm, which he is maintaining at this time. It is also notable that the patient had a CT of the abdomen performed and pelvis, which showed a severely distended bladder with mild hydronephrosis, and a urinalysis concerning for urinary tract infection. Urinalysis showed 3+ leukocytes and 2+ protein, as well as 4+ blood. Urology has been consulted. Initial lactic acid was noted to be 2.2. Potassium was slightly low at 3.5, BUN was 18, and creatinine 1.7. At present, he is resting in bed. He has a Khan catheter in place. Urology has already been into scene and evaluated him. He states his pain is much improved as compared to what it was before. He is currently in Unit #: [id number] #: [id number] Patient: ABDI JOHNSON normal sinus rhythm with heart rate in the 80s, on chronic anticoagulation with Pradaxa. PAST MEDICAL HISTORY 1. Atrial fibrillation/flutter. 2. Hypertension. 3. Hyperlipidemia. 4. COPD. 5. Peripheral vascular disease, status post abdominal aortic aneurysm repair approximately 10 years ago. 6. Pulmonary hypertension. 7. History of urinary retention. 8. Cardiac catheterization in 08/26/2016 showed an EF of 45% with no significant coronary artery stenosis. 9. A 2D echocardiogram from 07/2016 showed mild LVH and mildly dilated right ventricle, mild aortic stenosis, mild MR, mild TR, RVSP of 47 mmHg, ejection fraction was 55%. PAST SURGICAL HISTORY 1. Bilateral inguinal hernia repair. 2. Abdominal aortic aneurysm repair 10 years ago. 3. Back surgery. 4. Recent laparoscopic cholecystectomy. SOCIAL HISTORY The patient is a reformed tobacco user. He quit about a year ago, prior to that he was smoking half pack a day for 30+ years. Denies illicit drugs or alcohol use. He lives with his daughter. FAMILY HISTORY Positive for an LA in his mother at the age of 52. ALLERGIES No known drug allergies. HOME MEDICATIONS 1. Symbicort 160/4.5 two puffs inhalation b.i.d. 2. Pradaxa 150 mg p.o. b.i.d. 3. Amiodarone 200 mg p.o. daily. 4. Lopressor 25 mg p.o. b.i.d. 5. Lipitor 40 daily. 6. Tylenol 650 q.6 p.r.n. 7. Carafate t.i.d. 8. Protonix 40 mg daily. 9. [place] 7.5/325 q.4 hours p.r.n. 10. Ventolin inhalation daily p.r.n. 11. Lasix 20 mg p.o. daily. 12. Flomax 0.4 mg daily. 13. DuoNeb t.i.d. p.r.n. REVIEW OF SYSTEMS CONSTITUTIONAL: Denies recent weight loss or weight gain. HEENT: Denies blurred vision or headaches. CARDIOVASCULAR: Occasional shortness of breath and intermittent lower extremity swelling of his legs. Denies chest pain, PND, or orthopnea. GASTROINTESTINAL: Positive for abdominal pain as stated above, which is improved. Denies melena or hematochezia. MUSCULOSKELETAL: Positive for lower extremity swelling. Denies Unit #: [id number] #: [id number] Patient: ABDI JOHNSON claudication or DVT. NEUROLOGIC: Denies previous stroke, headache, dizziness, or syncopal episodes. DIAGNOSTIC STUDIES IMAGING RESULTS: 1. CT of the abdomen shows status post cholecystectomy without obvious complication. 2. Severely distended bladder measuring well over 21 cm in length suggestive of a high-grade bladder outlet obstruction or acute urinary retention. There is mild associated hydronephrosis. 3. Abo-yxrbvsbb-jq-count bilateral renal cortical cysts some of which are hyperdense and compatible of proteinaceous cysts, but are unchanged from prior studies. 4. Chest x-ray demonstrates pulmonary hyperinflation and hyperlucency suggesting emphysema. No infiltrates or effusions. Heart, mediastinum, and great vessels appear normal. No pneumothorax. LABORATORY RESULTS: Glucose 100, BUN 16, creatinine 1.3, sodium 139, potassium 3.2, chloride 96, CO2 is 33, calcium 7.8, and magnesium 2.2. Troponins have been negative. BNP was 137. TSH 1.21. Hemoglobin 11.2, hematocrit 34.2, WBCs 15.5, and platelet count 188. Urinalysis shows 3+ leukocyte esterase, nitrite negative, 2+ protein, 4+ blood, rbc's and wbc's are innumerable. Currently, has a urine culture that is pending. Preliminary blood cultures are negative. CARDIOVASCULAR RESULTS: EKG shows normal sinus rhythm at 83 beats per minute, nonspecific ST-T wave abnormalities noted. No acute ischemic change. DICTATION ENDS HERE. Dictated by... Yanet Junior/anamaria TD: 07/02/2017 13:47 JOB #: [id number] CONSULTATION REPORT Page 1 of 1 X Chel Grijalva APRN CONSULTATION REPORT
--- NOTE | ~2017-06-30 | HP ---
Unit #: [id number] #: [id number] Patient: ABDI JOHNSON [id number] [facility] [address]. [place], [place] [address] [id number] MR#: [id number] NAME: ABDI JOHNSON ROOM: Age: 67 Sex: M Admission Date: 06/30/2017 : 1950 Attending Physician: Arnulfo Sharp M.D. Primary Care Physician: Xenia Beck M.D. HISTORY AND PHYSICAL CHIEF COMPLAINT Abnormal labs. HISTORY OF PRESENT ILLNESS The patient is a 67-year-old male with a past medical history of atrial fibrillation/flutter, chronic anticoagulation with Pradaxa, hypertension, hyperlipidemia, congestive heart failure, COPD, peripheral vascular disease, pulmonary hypertension, who presented to the emergency department for evaluation of the above. Of note, the patient was hospitalized at [facility] June 15-2016, for nausea, vomiting, diarrhea, and abdominal pain. Initially, it was thought that he might have colitis. Ultimately, he was found to have cholecystitis and underwent laparoscopic cholecystectomy. He was also seen by Cardiology due to atrial fibrillation. He was discharged home on Flagyl for an additional two days. The patient states that he has had persistent abdominal pain since discharge. He describes the pain as "sharp." It has been constant in nature. There are no exacerbating or alleviating factors. He denies any fever, no cough, no chest pain or palpitations. He has had decreased appetite but no vomiting. He states that he has been constipated, although his last bowel movement was yesterday. He states that he has had difficulty urinating. He states that he is unable to urinate when he stands up and unable to urinate when he sits down. He then had intermittent incontinence when he lies down. He has noticed decreased urine output. The patient saw his primary care physician today. White blood cell count was noted to be high. He was sent to the emergency department for further evaluation. Upon arrival in the emergency department, pulse was 116, blood pressure 120/66. CT of the abdomen and pelvis showed severely distended bladder with mild hydronephrosis. Urinalysis shows findings concerning for urinary tract infection. Also of note, the patient developed atrial flutter with a rate in the 160s. He was given a total of two liters of normal saline, as well as a total of 18 mg of adenosine. Additionally, he received 20 mg of Cardizem, followed by 300 mg of amiodarone. After 0.25 mg of digoxin, the patient converted. Heart rate is now in the 90s. He also received vancomycin and Zosyn. Initial lactic acid is 2.2. He is being admitted to [facility] for evaluation and further treatment. Also of note, the patient's BUN and creatinine are 18 and 1.7, Unit #: [id number] #: [id number] Patient: ABDI JOHNSON respectively. PAST MEDICAL HISTORY 1. Admission to [facility] June 15-2016, for abdominal pain and ultimately found to have cholecystitis. He underwent laparoscopic cholecystectomy during that admission. 2. Atrial fibrillation followed by Dr. Matute, maintained on Pradaxa. 3. Hypertension. 4. Hyperlipidemia. 5. Congestive heart failure with ejection fraction of 45% noted on cardiac catheterization August 26, 2016. 6. Mild pulmonary hypertension. Echocardiogram August 25, 2016, showed mild concentric left ventricular hypertrophy, mildly dilated right ventricle, mild aortic stenosis, mild mitral regurgitation, mild tricuspid regurgitation, right ventricular systolic pressure was elevated at 47 mmHg. Ejection fraction was 55%. 7. Abdominal aortic aneurysm, status post repair. PAST SURGICAL HISTORY 1. Bilateral inguinal hernia repair. 2. Abdominal aortic aneurysm repair. 3. Back surgery. 4. Laparoscopic cholecystectomy. SOCIAL HISTORY The patient quit smoking in July 2016. He denies alcohol use. He walks without assistance. He lives with his daughter. FAMILY HISTORY Notable for his mother dying of a myocardial infarction at the age of 52. His dad at 67 of ALS. ALLERGIES No known allergies. HOME MEDICATIONS 1. Symbicort 160/4.5 at 2 puffs inhaled twice daily. 2. Pradaxa 150 mg twice daily. 3. Amiodarone 200 mg daily. 4. Lopressor 25 mg twice daily. 5. Lipitor 40 mg daily. 6. Tylenol 650 q.6 hours p.r.n. 7. Carafate t.i.d. 8. Protonix 40 mg daily. 9. Traer 7.5/325 q.4 hours p.r.n. 10. Ventolin inhaled daily p.r.n. 11. Lasix 20 mg daily. 12. Flomax 0.4 mg daily. 13. DuoNebs t.i.d. p.r.n. REVIEW OF SYSTEMS A complete review of systems is negative except as indicated in the HPI. The patient has had swelling of his legs for the past couple of days. PHYSICAL EXAMINATION VITAL SIGNS: Temperature is 98.5, pulse 116, respirations 20, blood pressure 120/66, oxygen saturation is 92% on room air. GENERAL: The patient is a very pleasant male who is awake and Unit #: [id number] #: [id number] Patient: ABDI JOHNSON alert in no acute distress. HEENT: Head is atraumatic. Mucous membranes are moist. NECK: Supple. Trachea is midline. CARDIOVASCULAR: Irregular. LUNGS: Clear to auscultation bilaterally with no increased work of breathing. ABDOMEN: Soft with bowel sounds present in all four quadrants. He is mildly tender to palpation. There are stapled incisions on the abdomen that are clean, dry, and intact. GENITOURINARY: The patient has a Khan catheter in place. The urine appears red in color. NEUROLOGIC: The patient is awake and alert. He follows commands. PSYCHIATRIC: Mood and affect are normal. The patient is cooperative. SKIN: Skin of examined areas is warm and dry. DIAGNOSTIC STUDIES LABORATORY: INR is 1. Comprehensive metabolic panel notable for sodium of 133, chloride is 86, CO2 is 34, glucose 146, BUN and creatinine 18 and 1.7, respectively, ALT is 48, albumin is 3.2. Complete blood count notable for white blood cell count of 22.6. Lactic acid 2.2. Troponin is less than 0.05. BNP is 137. Urinalysis notable for 3+ leukocyte esterase, 2+ protein, 4+ blood with enumerable red blood cells and enumerable white blood cells. IMAGING: CT of the abdomen and pelvis shows marked distention of the bladder up to 21 cm with mild associated hydronephrosis. Chest x-ray shows findings suggestive of emphysema. CARDIOLOGY: EKG shows atrial flutter with a rate of 160 beats per minute. ASSESSMENT The patient is a 67-year-old male with: 1. Sepsis with initial lactic acid of 2.2. The patient received a total of two liters in the emergency department. 2. Urinary tract infection. The patient received vancomycin and Zosyn in the emergency department. 3. Atrial fibrillation, rate controlled after a total of 18 mg of adenosine, 20 mg of Cardizem, 300 mg of amiodarone, and 0.25 mg of digoxin. 4. Acute kidney injury secondary to bladder outlet obstruction. The patient's creatinine is 1.7. It was 0.8 on June 21, 2017. 5. Bladder outlet obstruction with severe distention noted on CT. The patient now has a Khan catheter. Initial urine output was two liters upon placement of the Khan catheter. 6. Mild hydronephrosis. 7. Hypertension. 8. Hyperlipidemia. 9. Congestive heart failure with ejection fraction as noted above. 10. Chronic anticoagulation with Pradaxa. 11. COPD. 12. Former smoker. 13. Peripheral vascular disease. 14. Pulmonary hypertension. PLAN 1. Admit to intermediate level. 2. Normal saline at 75 mL/hour. 3. Healthy heart diet if passes bedside swallow. Unit #: [id number] #: [id number] Patient: ABDI JOHNSON 4. Blood cultures x2. 5. Urine culture and sensitivity on urine in the lab. 6. Rocephin IV pending urine culture. 7. Consult Dr. Matute regarding atrial flutter. 8. Check magnesium level. 9. Serial cardiac enzymes. 10. TSH. 11. Monitor heart rate closely. 12. Strict I/Os. 13. Consult Dr. Vera regarding urinary retention and mild hydronephrosis. 14. Sepsis protocol. 15. Supplemental oxygen. 16. P.r.n. DuoNebs. 17. P.r.n. Zofran. 18. Repeat labs in the morning. 19. Additional workup and consultants based on above. 1. Dictated by Lamont Lobato TD: 06/30/2017 20:39 JOB #: [id number] HISTORY AND PHYSICAL Page 1 of 1 X Donna Andre MD HISTORY AND PHYSICAL
--- NOTE | ~2017-06-30 | CO ---
Unit #: [id number] #: [id number] Patient: ABDI JOHNSON [id number] [address] [address] [id number] I MR#: [id number] NAME: ABDI JOHNSON ROOM: 574 Age: 67 Sex: M Admission Date: 06/30/2017 : 1950 Attending Physician: Francia Porter M.D. Primary Care Physician: Xenia Beck M.D. Consultation Date: 07/01/2017 CONSULTATION REPORT CHIEF COMPLAINT Unable to urinate. HISTORY OF PRESENT ILLNESS The patient is admitted to the hospital after having abdominal pain. Had a laparoscopic cholecystectomy about a week ago. He came into the hospital, had tachycardia. CT scan showed very distended bladder and right hydronephrosis due to his distended bladder. The patient also had some atrial flutter. Khan catheter was placed. The patient had a history of retention in the past. Apparently, I saw him years ago for a similar incident. PAST MEDICAL HISTORY Hypertension, CHF, pulmonary hypertension, abdominal aortic aneurysm repair, inguinal hernia repair bilaterally, back surgery, laparoscopic cholecystectomy, atrial fibrillation, hypertension, hyperlipidemia. SOCIAL HISTORY Quit smoking last fall. Denies alcohol. FAMILY HISTORY Noncontributory. ALLERGIES No known drug allergies. MEDICATIONS At home, Pradaxa, amiodarone, Lopressor, Symbicort, Lipitor, Tylenol, Carafate, Protonix, Ka[place], Ventolin, Lasix, DuoNeb. The patient denies taking Flomax at home, but it is on his medication list. REVIEW OF SYSTEMS Negative except for slight abdominal discomfort. PHYSICAL EXAMINATION VITAL SIGNS: He is afebrile. Vital signs are stable. ABDOMEN: Soft. No rebound. No guarding. Incision is healing well. : The Khan catheter in place. Normal external genitalia. NECK: Trachea midline. Supple. EYES: Equal and reactive to light. NEURO: Cranial nerves II through XII intact. SKIN: No clubbing or cyanosis. DIAGNOSTIC STUDIES Unit #: [id number] #: [id number] Patient: ABDI JOHNSON LABORATORY RESULTS: INR was 1. Creatinine 1.7. ASSESSMENT Urinary retention. CT scan shows significant bladder distention and hydronephrosis due to the distention. Khan catheter placed. Unsure of the residual. We will increase his Flomax to 0.8 mg. the patient will get a voiding trial. Upon review of the records, actually he had 2 L of urine upon Khan catheter placed, which is significant. We will await for his urine culture results. The patient and I had a long discussion. Thank you for the kind referral. Dictated by... Alvaro Vera M.D. NATALIA/anamaria TD: 07/02/2017 03:42 JOB #: [id number] CONSULTATION REPORT Page 1 of 1 X Alavro Vera MD X CONSULTATION REPORT
--- NOTE | ~2017-06-30 | CT4 ---
[facility] A Service of [facility] & [facility] RADIOLOGY TEXT RESULTS PATIENT: ABDI JOHNSON LOCATION: [facility] 574-01 : [birth year] UNIT #: [id number] AGE: [address]: Francia Porter MD SEX: M ORDER DR: [id number] [facility] [address] [place], [place] [address] [id number] I MR#: [id number] Acc #: [id number] NAME: ABDI JOHNSON : 1950 SEX: M STUDY DATE/TIME: 06/30/2017 16:39 UNIT: [facility] ROOM: 4 STUDY DESCRIPTION: CT Abd and Pelv Wo Cont Attending Physician: Donna Andre M.D. Ordering Physician: Arnulfo Sharp M.D. Primary Care Physician: Xenia Beck M.D. MEDICAL IMAGING REPORT This report is preliminary unless electronic signature is present EXAM CT abdomen and pelvis without contrast. HISTORY Abdominal pain. Mildly elevated white count. Right lower quadrant pain x1 week. Patient has had recent gallbladder surgery. TECHNIQUE Axial images performed through the abdomen and pelvis without contrast. Multiplanar reconstructed images reviewed at a workstation. This CT exam was performed with one or more of the following radiation dose reduction techniques: automatic exposure control, adjustment of mA and/or kV according to patient size, and iterative reconstruction. FINDINGS ABDOMEN: Lung bases unremarkable except for mild emphysematous change. Liver and spleen appear normal. The gallbladder is surgically absent. Pancreas and adrenal glands are unremarkable. Mild bilateral hydronephrosis probably secondary to bladder outlet obstruction as the bladder is markedly distended. There are too numerous to count bilateral renal cortical cysts some of which appear hyperdense, probably representing proteinaceous cyst. These are unchanged from the CT scan of 06/15/2017. Postsurgical changes are noted from prior aortobifemoral bypass graft. Visualized GI tract unremarkable. PELVIS: The bladder is severely distended measuring over 21 cm in cephalocaudal dimension. Prostate mildly enlarged. Osseous structures unremarkable. Soft tissues demonstrate surgical clips in the anterior abdomen related to recent laparoscopic surgery. IMPRESSION [facility] A Service of [facility] & [facility] RADIOLOGY TEXT RESULTS PATIENT: ABDI JOHNSON LOCATION: [facility] 574-01 : [birth year] UNIT #: [id number] AGE: [address]: Francia Porter MD SEX: M ORDER DR: 1. Status post apparent laparoscopic cholecystectomy without obvious complication. 2. Severely distended bladder measuring well over 21 cm in length, suggesting a high-grade bladder outlet obstruction or acute urinary retention. There is mild associated hydronephrosis. 3. Too numerous to count bilateral renal cortical cysts, some of which are hyperdense and compatible a proteinaceous cyst but are unchanged from prior studies. Dictated by... Naresh Echols M.D. THIS IS AN ELECTRONICALLY VERIFIED REPORT Naresh Echols M.D. at 07/01/2017 6:53 PM VIOLA/ignacio TD: 06/30/2017 23:03 JOB #: [id number] MEDICAL IMAGING REPORT Page 1 of 1 COPY
--- NOTE | ~2017-06-30 | EKG ---
PATIENT: ABDI JOHNSON UNIT #: [id number] Ventricular Rate: 82 BPM Atrial Rate: 82 BPM P-R Interval: 140 ms QRS Duration: 70 ms Q-T Interval: 404 ms QTC Calculation(Bezet): 472 ms P Quincy: 74 degrees Calculated R Quincy: 71 degrees Calculated T Quincy: -170 degrees Diagnosis Line: Normal sinus rhythm Diagnosis Line: Possible Left atrial enlargement Diagnosis Line: ST and T wave abnormality, consider anterolateral Diagnosis Line: ischemia Diagnosis Line: Prolonged QT Diagnosis Line: Abnormal ECG Diagnosis Line: When compared with ECG of 30-JUN-2017 17:32, Diagnosis Line: (unconfirmed) Diagnosis Line: Sinus rhythm has replaced Atrial flutter Diagnosis Line: Vent. rate has decreased BY 78 BPM Diagnosis Line: Questionable change in QRS duration Diagnosis Line: Confirmed by JORDAN AVALOS MD ([id number]) on Diagnosis Line: 07/01/2017 4:48:27 PM INTERPRETING MD: SEBAS
--- NOTE | ~2017-06-30 | CR72 ---
[facility] A Service of [facility] RADIOLOGY TEXT RESULTS PATIENT: ABDI JOHNSON LOCATION: [facility] 574-01 : [birth year] UNIT #: [id number] AGE: [address]: Francia Porter MD SEX: M ORDER DR: [id number] [facility] [address] [place], [place] [address] [id number] I MR#: [id number] #: [id number] NAME: ABDI JOHNSON : 1950 SEX: M STUDY DATE/TIME: 06/30/2017 15:27 UNIT: SEDOF ROOM: [id number] STUDY DESCRIPTION: CR Chest Single View Portable Attending Physician: Donna Andre M.D. Ordering Physician: Arnulfo Sharp M.D. Primary Care Physician: Xenia Beck M.D. MEDICAL IMAGING REPORT This report is preliminary unless electronic signature is present EXAM Portable chest x-ray, 06/30/2017. HISTORY High white blood cell count, short of air. Duration one day symptoms. TECHNIQUE AP radiographs of the chest are presented. COMPARISON 06/18/2017. FINDINGS The lungs are well inflated. There is no evidence of acute infectious or inflammatory disease, pleural effusion or pneumothorax. No suspicious nodule. Cardiomediastinal contours normal. Heart normal in size. No acute bony abnormality. There are surgical skin lois overlying the left upper quadrant. Please correlate with recent intervention/operative history. Partially visualized aortic stent graft. No free air in the abdomen. Dictated by... Sukhwinder Howard M.D. THIS IS AN ELECTRONICALLY VERIFIED REPORT Sukhwinder Howard M.D. at 07/01/2017 6:18 PM Amanda TD: 06/30/2017 20:32 JOB #: [id number] [facility] A Service of [facility] RADIOLOGY TEXT RESULTS PATIENT: ABDI JOHNSON LOCATION: [facility] 574-01 : [birth year] UNIT #: [id number] AGE: [address]: Francia Porter MD SEX: M ORDER DR: MEDICAL IMAGING REPORT Page 1 of 1 COPY
--- NOTE | ~2017-06-30 | EKG ---
PATIENT: ABDI JOHNSON UNIT #: [id number] Ventricular Rate: 160 BPM Atrial Rate: 320 BPM QRS Duration: 166 ms Q-T Interval: 298 ms QTC Calculation(Bezet): 486 ms P Sultana: -81 degrees Calculated R Sultana: 11 degrees Calculated T Sultana: -78 degrees Diagnosis Line: Atrial flutter with variable A-V block with Diagnosis Line: premature ventricular or aberrantly conducted Diagnosis Line: complexes Diagnosis Line: Indeterminate axis Diagnosis Line: Non-specific intra-ventricular conduction block Diagnosis Line: Abnormal ECG Diagnosis Line: No previous ECGs available Diagnosis Line: Confirmed by MEREDITH CHAO MD ([id number]) on 07/01/2017 Diagnosis Line: 5:49:34 PM INTERPRETING MD: ZHANNA BERNARD
[~2017-06-30 12:35] MED LIST changes: +ACETAMINOPHEN325 MG PO; +AMIODARONE HCL200 MG PO; +AUGMENTIN PO; +CARAFATE1 GM PO; +DUONEB INH; +FLAGYL250 M1 PO; +HYDROCODON-ACE1 EAC9 PO; +PROTONIX PO; +VENTOLIN; +[UNRECOGNIZED DRUG - REMARK]
[2017-06-30 15:43] LABS: BASOPHIL# 0.1 X10e3 (0-0.3); BASOPHIL% 0.5 % (0-2.5); EOSINOPHIL% 0.2 % (0.0-7.0); HEMATOCRIT 44.2 % (38.0-50.0); HEMOGLOBIN 14.7 gm/dL (13.0-16.0); LYMPHOCYTE# 1.6 X10e3 (1.0-3.5); MEAN CELL VOLUME 91.3 FL (83-96); MEAN CORPUSCULAR HEMOGLOBIN 30.4 PG (28-34); MEAN CORPUSCULAR HGB CONC 33.3 g/dL (30-36); MONOCYTE# 1.3 X10e3 (0-1.0); MONOCYTE% 5.8 % (3.0-12.0); NEUTROPHIL# 19.5 X10e3 (1.5-7.1); NEUTROPHIL% 86.5 % (40-75); PLATELET COUNT 244 X10e3 (140-420); RED BLOOD COUNT 4.84 X10e (3.90-5.60); RED CELL DISTRIBUTION WIDTH 13.5 % (11.0-15.5); WHITE BLOOD COUNT 22.6 X10e3 (4.0-10.5)
[2017-06-30 15:44] LABS: DIFF IND YES
[2017-06-30 15:52] LABS: PARTIAL THROMBOPLASTIN TIME 26.6 SECONDS (23.5-31.3); PROTHROMBIN TIME (PATIENT) 11.1 SECONDS (10.0-11.7)
[2017-06-30 16:08] LABS: ALBUMIN SERUM 3.2 g/dL (3.5-5.0); BILIRUBIN, DIRECT 0.4 mg/dL (0.0-0.2); BILIRUBIN,INDIRECT 1.2 mg/dL (0.0-0.9); BILIRUBIN,TOTAL 1.6 mg/dL (0.2-2.0); BUN/CREATININE RATIO 10.58; CALCIUM SERUM 8.6 mg/dL (8.4-10.2); CREATININE SERUM 1.7 mg/dL (0.6-1.4); GLOM FILT RATE Estimated 40.8 mL/min (>60); POTASSIUM 3.5 mmol/L (3.5-5.1); PROTEIN TOTAL SERUM 7.1 g/dL (6.0-8.3)
[2017-06-30 16:13] LABS: PLATELET ESTIMATE NORMAL (NORMAL)
[2017-06-30 16:25] LABS: POC - CKMB 6.6 ng/mL (0.0-7.9); POC - TROPONIN <0.05 ng/mL (<=0.05)
[2017-06-30] MEDS ORDERED: PATIENT'S PHARMACY (17:30)
[2017-06-30] MEDS ORDERED: ALBUTEROL17 GM INH (17:30)
[2017-06-30] MEDS ORDERED: IPRATR-ALBUTEROL3 ML PO (17:31)
[2017-06-30] MEDS ORDERED: LASIX20 MG PO (17:31)
[2017-06-30] MEDS ORDERED: FLOMAX0.4 M1 PO (17:31)
[2017-06-30 18:39] LABS: URINE SOURCE CLEAN CATCH
[2017-06-30 18:45] LABS: URINE APPEARANCE CLOUDY; URINE BILIRUBIN NEG (NEG); URINE BLOOD 4+ (NEG); URINE COLOR RED; URINE GLUCOSE NORM (NORM); URINE KETONE NEG (NEG); URINE LEUKOCYTE ESTERASE 3+ (NEG); URINE NITRATE NEG (NEG); URINE PROTEIN 2+ (NEG); URINE UROBILINOGEN NORM (NORM)
[2017-06-30 18:58] LABS: URBCS1 AUWI INNUM /[HPF] (0-2); UWBCS1 AUWI INNUM (0-5)
[2017-06-30 19:00] LABS: CULTURE INDICATED? YES
[2017-06-30 19:56] LABS: POC - CKMB 3.4 ng/mL (0.0-7.9); POC - TROPONIN <0.05 ng/mL (<=0.05)
[2017-06-30 21:56] LABS: MAGNESIUM 2.3 mg/dL (1.6-3.0)
[2017-07-01 02:51] LABS: CK TOTAL 51 IU/L (36-174)
[2017-07-01 08:57] LABS: INR 1.2
[2017-07-01 09:09] LABS: CK TOTAL 39 IU/L (36-174)
[2017-07-01 10:04] LABS: BASOPHIL% 0.3 % (0-2.5); EOSINOPHIL# 0.1 X10e3 (0-0.7); EOSINOPHIL% 0.9 % (0.0-7.0); HEMATOCRIT 34.2 % (38.0-50.0); LYMPHOCYTE# 1.4 X10e3 (1.0-3.5); LYMPHOCYTE% 8.8 % (17.0-45.0); MEAN CELL VOLUME 92.4 FL (83-96); MEAN CORPUSCULAR HEMOGLOBIN 30.2 PG (28-34); MEAN CORPUSCULAR HGB CONC 32.7 g/dL (30-36); MONOCYTE% 6.4 % (3.0-12.0); NEUTROPHIL# 12.9 X10e3 (1.5-7.1); NEUTROPHIL% 83.6 % (40-75); PLATELET COUNT 188 X10e3 (140-420); RED CELL DISTRIBUTION WIDTH 13.6 % (11.0-15.5); WHITE BLOOD COUNT 15.5 X10e3 (4.0-10.5)
[2017-07-01 10:06] LABS: DIFF IND NO; HEMOGLOBIN 11.2 gm/dL (13.0-16.0)
[2017-07-01 10:12] LABS: ALBUMIN SERUM 2.2 g/dL (3.5-5.0); BILIRUBIN,TOTAL 0.6 mg/dL (0.2-2.0); BUN/CREATININE RATIO 12.3; CALCIUM SERUM 7.8 mg/dL (8.4-10.2); CREATININE SERUM 1.3 mg/dL (0.6-1.4); GLOM FILT RATE Estimated 56.5 mL/min (>60); MAGNESIUM 2.2 mg/dL (1.6-3.0); POTASSIUM 3.2 mmol/L (3.5-5.1); PROTEIN TOTAL SERUM 5.2 g/dL (6.0-8.3)
[2017-07-02 06:40] LABS: HEMATOCRIT 32.2 % (38.0-50.0); HEMOGLOBIN 10.7 gm/dL (13.0-16.0); MEAN CELL VOLUME 92.4 FL (83-96); MEAN CORPUSCULAR HEMOGLOBIN 30.7 PG (28-34); MEAN CORPUSCULAR HGB CONC 33.3 g/dL (30-36); MEAN PLATELET VOLUME 8.8 FL (6.5-11.5); RED BLOOD COUNT 3.49 X10e (3.90-5.60); RED CELL DISTRIBUTION WIDTH 13.8 % (11.0-15.5); WHITE BLOOD COUNT 10.3 X10e3 (4.0-10.5)
[2017-07-02 07:00] LABS: BUN/CREATININE RATIO 11.81; CALCIUM SERUM 7.8 mg/dL (8.4-10.2); CREATININE SERUM 1.1 mg/dL (0.6-1.4); GLOM FILT RATE Estimated 69.1 mL/min (>60)
[2017-07-02 07:18] LABS: POTASSIUM 2.9 mmol/L (3.5-5.1)
[2017-07-02 11:57] LABS: BUN/CREATININE RATIO 12.72; CALCIUM SERUM 8.1 mg/dL (8.4-10.2); CREATININE SERUM 1.1 mg/dL (0.6-1.4); GLOM FILT RATE Estimated 69.1 mL/min (>60); POTASSIUM 3.9 mmol/L (3.5-5.1)
[2017-07-03 06:11] LABS: HEMATOCRIT 35.5 % (38.0-50.0); HEMOGLOBIN 11.9 gm/dL (13.0-16.0); MEAN CELL VOLUME 91.9 FL (83-96); MEAN CORPUSCULAR HEMOGLOBIN 30.7 PG (28-34); MEAN CORPUSCULAR HGB CONC 33.4 g/dL (30-36); MEAN PLATELET VOLUME 8.5 FL (6.5-11.5); RED BLOOD COUNT 3.87 X10e (3.90-5.60); RED CELL DISTRIBUTION WIDTH 13.4 % (11.0-15.5); WHITE BLOOD COUNT 7.8 X10e3 (4.0-10.5)
[2017-07-03 06:38] LABS: BUN/CREATININE RATIO 9.16; CALCIUM SERUM 8.2 mg/dL (8.4-10.2); CREATININE SERUM 1.2 mg/dL (0.6-1.4); GLOM FILT RATE Estimated 62.2 mL/min (>60); MAGNESIUM 1.7 mg/dL (1.6-3.0); POTASSIUM 3.8 mmol/L (3.5-5.1)
[2017-07-04 07:12] LABS: HEMATOCRIT 36.8 % (38.0-50.0); HEMOGLOBIN 12.3 gm/dL (13.0-16.0); MEAN CORPUSCULAR HEMOGLOBIN 30.6 PG (28-34); MEAN CORPUSCULAR HGB CONC 33.3 g/dL (30-36); MEAN PLATELET VOLUME 8.4 FL (6.5-11.5); RED CELL DISTRIBUTION WIDTH 13.3 % (11.0-15.5); WHITE BLOOD COUNT 7.3 X10e3 (4.0-10.5)
[2017-07-04 07:42] LABS: BUN/CREATININE RATIO 10.83; CALCIUM SERUM 8.2 mg/dL (8.4-10.2); CREATININE SERUM 1.2 mg/dL (0.6-1.4); GLOM FILT RATE Estimated 62.2 mL/min (>60); MAGNESIUM 2.3 mg/dL (1.6-3.0); POTASSIUM 3.5 mmol/L (3.5-5.1)
[2017-07-05 05:43] LABS: HEMATOCRIT 35.7 % (38.0-50.0); HEMOGLOBIN 11.9 gm/dL (13.0-16.0); MEAN CELL VOLUME 92.3 FL (83-96); MEAN CORPUSCULAR HEMOGLOBIN 30.7 PG (28-34); MEAN CORPUSCULAR HGB CONC 33.3 g/dL (30-36); MEAN PLATELET VOLUME 8.2 FL (6.5-11.5); RED BLOOD COUNT 3.87 X10e (3.90-5.60); RED CELL DISTRIBUTION WIDTH 13.3 % (11.0-15.5); WHITE BLOOD COUNT 8.4 X10e3 (4.0-10.5)
[2017-07-05 06:43] LABS: BUN/CREATININE RATIO 11.81; CALCIUM SERUM 8.5 mg/dL (8.4-10.2); CREATININE SERUM 1.1 mg/dL (0.6-1.4); GLOM FILT RATE Estimated 69.1 mL/min (>60); MAGNESIUM 2.1 mg/dL (1.6-3.0)
[2017-07-05 06:49] LABS: POTASSIUM 5.2 mmol/L (3.5-5.1)
[2017-07-05] MEDS ORDERED: KEFLEX500 MG PO (15:00)
[2017-07-05] MEDS ORDERED: AMIODARONE HCL100 MG PO (15:01)
[2017-07-05] MEDS ORDERED: LOPRESSOR PO (15:02)
[2017-07-05] MEDS ORDERED: FLOMAX0.4 M1 PO (15:05)
[2017-07-06 22:13] LABS: SPE A1GLOB (PNL) 0.7 g/dL (0.2-0.3); SPE ALB (PNL) 2.3 g/dL (3.8-4.8); SPE BETA 1 GLOBULIN 0.4 g/dL (0.4-0.6); SPE BETA 2 GLOBULIN 0.3 g/dL (0.2-0.5); SPE GAMMA (PNL) 0.4 g/dL (0.8-1.7); SPETP (PNL) 5.2 g/dL (6.1-8.1)
== END 2017-07-05 16:29 | disposition home or self-care (01) | DRG 872 ==
LOC: CED 12:35 → C5C 19:40 → CEDOF 19:40 → SEDOF 20:03 → CED 20:03 → CEDOF 20:03 → C5C 22:33 → CEDOF 22:33 → C5C 22:33
PROVIDERS: Emergency Medicine; Family Medicine; Internal Medicine; Internal Medicine Nephrology
DX: A41.51 Sepsis due to Escherichia coli [E. coli] (principal); N17.9 Acute kidney failure, unspecified; I27.2 Other secondary pulmonary hypertension; I13.0 Hypertensive heart and chronic kidney disease with heart failure and stage 1 through stage 4 chronic kidney disease, or unspecified chronic kidney disease; I50.9 Heart failure, unspecified; N13.30 Unspecified hydronephrosis; N39.0 Urinary tract infection, site not specified; I48.92 Unspecified atrial flutter; N18.2 Chronic kidney disease, stage 2 (mild); N32.0 Bladder-neck obstruction; I48.91 Unspecified atrial fibrillation; E78.5 Hyperlipidemia, unspecified; I73.9 Peripheral vascular disease, unspecified; E87.5 Hyperkalemia; R33.9 Retention of urine, unspecified; J44.9 Chronic obstructive pulmonary disease, unspecified; Z79.01 Long term (current) use of anticoagulants; Z87.891 Personal history of nicotine dependence; Z90.49 Acquired absence of other specified parts of digestive tract; Z82.49 Family history of ischemic heart disease and other diseases of the circulatory system
CPT/HCPCS: 36415; 71010; 74176; 80048; 80053; 80076; 81003; 82550; 82553; 83605; 83630; 83735; 83880; 84165; 84443; 84484; 85025; 85027; 85610; 85730; 86334; 87040; 87045; 87086; 87088; 87177; 87186; 87209; 87427; 87493; 87899; 93005; 94640; 94664; 94760; 96361; 96365; 96375; 99291; 99292; J0153; J0282; J0696; J1160; J1170; J1940; J2405; J2543; J3370; J3475